=== PATIENT | male | born 1955 | race African-American/Black ===

== ENCOUNTER 2018-08-22 17:23 | Inpatient (IN) | payer MEDICARE, MEDICAID ==
--- NOTE | 2018-08-22 17:47 | ED Physician Chart ---
ED Chief Complaint/HPI - Patient Information Date Seen:: 08/22/18 Time Seen:: 17:30 Chief Complaint:: Agitation History of Present Illness:: onset x 2 days of agitation and hostile behavior; no report of trauma, H/As, SIs , neck pain, C/P, SOB, Abd. Pain, or urinary s/s Allergies:: Allergies Allergy/AdvReac Type Severity Reaction Status Date / Time No Known Allergies Allergy Verified 08/22/18 17:42 Historian:: Patient, EMS Review:: Nurse's Note Reviewed, Old Chart Reviewed <Emerson Verduzco - Last Filed: 08/22/18 18:52> - Patient Information Allergies:: Allergies Allergy/AdvReac Type Severity Reaction Status Date / Time No Known Allergies Allergy Verified 08/22/18 17:42 <Kimber Roa - Last Filed: 08/23/18 11:59> ED Review of Systems - Review of Systems General/Constitutional: No fever, No chills, No weight loss, No weakness, No diaphoresis, No edema, No loss of appetite Skin: No skin lesions, No rash, No bruising Head: No headache, No light-headedness Eyes: No loss of vision, No pain, No diplopia ENT: No earache, No nasal drainage, No sore throat, No tinnitus Neck: No neck pain, No swelling, No thyromegaly, No stiffness, No mass noted Cardio Vascular: No chest pain, No palpitations, No PND, No orthopnea, No edema Pulmonary: No SOB, No cough, No sputum, No wheezing GI: No nausea, No vomiting, No diarrhea, No pain, No melena, No hematochezia, No constipation, No hematemesis G/U: No dysuria, No frequency, No hematuria, No nacturia Musculoskeletal: No bone or joint pain, No back pain, No muscle pain Endocrine: No polyuria, No polydipsia Psychiatric: Prior psych history, Depression, Anxiety, No suicidal ideation, No homicidal ideation, No auditory hallucination, No visual hallucination Hematopoietic: No bruising, No lymphadenopathy Allergic/Immuno: No urticaria, No angioedema Neurological: No syncope, No focal symptoms, No weakness, No paresthesia, No headache, No seizure, No dizziness, No confusion, No vertigo <Emerson Verduzco - Last Filed: 08/22/18 18:52> ED Past Medical History - Past Medical History Obtainable: Yes Past Medical History: HTN, DM, Dyslipidemia Family History: HTN Social History: Non Smoker, No Alcohol, No Drug Use, Single, Care Facility Surgical History: None Psychiatricy History: Depression, Bipolar Medication: Reviewed <ErinmilessulyEmerson - Last Filed: 08/22/18 18:52> Family Medical History - Family Member Mother History Unknown: Yes <ErinmilessulyEmerson - Last Filed: 08/22/18 18:52> ED Physical Exam - Physical Examination General/Constitutional: Awake, Well-developed, well-nourished, Alert, No distress, GCS 15, Non-toxic appearing, Ambulatory Head: Atraumatic Eyes: Lids, conjuctiva normal, PERRL, EOMI Skin: Nl inspection, No rash, No skin lesions, No ecchymosis, Well hydrated, No lymphadenopathy ENMT: External ears, nose nl, TM canals nl, Nasal exam nl, Lips, teeth, gums nl , Oropharynx nl, Tonsils nl Neck: Nontender, Full ROM w/o pain, No JVD, No nuchal rigidity, No bruit, No mass, No stridor Respiratory: Nl effort/Exclusion, Clear to Auscultation, No Wheeze/Rhonchi/Rales Cardio Vascular: RRR, No murmur, gallop, rubs, NL S1 S2, Carotid/Femoral/Distal pulses equal bilaterally GI: No tenderness/rebounding/guarding, No organomegaly, No hernia, Normal BS's, Nondistended, No mass/bruits, No McBurney tenderness Other GI comments:: no pulsatile masses : No CVA tenderness Extremities: No tenderness or effusion, Full ROM, normal strength in all extremities, No edema, Normal digits & nails Neuro/Psych: Alert/oriented, DTR's symmetric, Normal sensory exam, Normal motor strength, Judgement/insight normal, Mood normal, Normal gait, No focal deficits Other Neuro/Psych comments:: + Psychomotor Agitation; no SIs; Mood/Affect: Labile Misc: Normal back, No paraspinal tenderness <SindysulyEmerson - Last Filed: 08/22/18 18:52> ED Labs/Radiology/EKG Results - Lab Results Results: Laboratory Tests 08/22/18 08/22/18 08/22/18 17:30 18:00 18:00 WBC 5.3 RBC 4.24 L Hgb 11.9 L Hct 36.9 L MCV 87.0 MCH 28.1 MCHC Differential 32.2 RDW 13.5 Plt Count 159 MPV 8.6 Neutrophils % 51.3 Lymphocytes % 36.7 Monocytes % 9.3 Eosinophils % 2.1 Basophils % 0.6 Sodium 133 L Potassium 3.9 Chloride 98 Carbon Dioxide 26.1 Anion Gap 12.8 BUN 24 Creatinine 1.7 H Est GFR ( Amer) 52.6 Est GFR (Non-Af Amer) 43.5 BUN/Creatinine Ratio 14.1 Glucose 329 H POC Glucose Calcium 9.7 Total Bilirubin 0.4 AST 31 ALT 71 H Alkaline Phosphatase 149 H Troponin I Total Protein 7.4 Albumin 4.0 L Globulin 3.4 Albumin/Globulin Ratio 1.2 Triglycerides 261 H Cholesterol 138 LDL Cholesterol Direct 104 HDL Cholesterol 23 TSH Urine Source Urine Color Urine Clarity Urine pH Ur Specific [place] Urine Protein Urine Glucose (UA) Urine Ketones Urine Blood Urine Nitrate Urine Bilirubin Urine Urobilinogen Ur Leukocyte Esterase Urine RBC Urine WBC Ur Epithelial Cells Urine Bacteria Salicylates < 25.0 L Urine Opiates Screen NEGATIVE Urine Methadone Screen NEGATIVE Acetaminophen < 10.0 L Ur Barbiturates Screen NEGATIVE Ur Tricyclics Screen POSITIVE H Ur Phencyclidine Scrn NEGATIVE Amphetamines Screen NEGATIVE U Methamphetamines Scrn NEGATIVE U Benzodiazepines Scrn NEGATIVE U Cocaine Metab Screen NEGATIVE U Cannabinoids Screen NEGATIVE Ethyl Alcohol < 10 08/22/18 08/22/18 08/22/18 18:00 18:00 18:25 WBC RBC Hgb Hct MCV MCH MCHC Differential RDW Plt Count MPV Neutrophils % Lymphocytes % Monocytes % Eosinophils % Basophils % Sodium Potassium Chloride Carbon Dioxide Anion Gap BUN Creatinine Est GFR ( Amer) Est GFR (Non-Af Amer) BUN/Creatinine Ratio Glucose POC Glucose Calcium Total Bilirubin AST ALT Alkaline Phosphatase Troponin I < 0.01 L Total Protein Albumin Globulin Albumin/Globulin Ratio Triglycerides Cholesterol LDL Cholesterol Direct HDL Cholesterol TSH 5.39 Urine Source CLEAN C Urine Color YELLOW Urine Clarity CLEAR Urine pH 6.0 Ur Specific [place] 1.010 Urine Protein NEGATIVE Urine Glucose (UA) >=1000 H Urine Ketones NEGATIVE Urine Blood NEGATIVE Urine Nitrate NEGATIVE Urine Bilirubin NEGATIVE Urine Urobilinogen 0.2 Ur Leukocyte Esterase NEGATIVE Urine RBC 0-2 H Urine WBC 2-5 Ur Epithelial Cells OCCASIONAL Urine Bacteria FEW Salicylates Urine Opiates Screen Urine Methadone Screen Acetaminophen Ur Barbiturates Screen Ur Tricyclics Screen Ur Phencyclidine Scrn Amphetamines Screen U Methamphetamines Scrn U Benzodiazepines Scrn U Cocaine Metab Screen U Cannabinoids Screen Ethyl Alcohol 08/22/18 20:45 WBC RBC Hgb Hct MCV MCH MCHC Differential RDW Plt Count MPV Neutrophils % Lymphocytes % Monocytes % Eosinophils % Basophils % Sodium Potassium Chloride Carbon Dioxide Anion Gap BUN Creatinine Est GFR ( Amer) Est GFR (Non-Af Amer) BUN/Creatinine Ratio Glucose POC Glucose 239 H Calcium Total Bilirubin AST ALT Alkaline Phosphatase Troponin I Total Protein Albumin Globulin Albumin/Globulin Ratio Triglycerides Cholesterol LDL Cholesterol Direct HDL Cholesterol TSH Urine Source Urine Color Urine Clarity Urine pH Ur Specific [place] Urine Protein Urine Glucose (UA) Urine Ketones Urine Blood Urine Nitrate Urine Bilirubin Urine Urobilinogen Ur Leukocyte Esterase Urine RBC Urine WBC Ur Epithelial Cells Urine Bacteria Salicylates Urine Opiates Screen Urine Methadone Screen Acetaminophen Ur Barbiturates Screen Ur Tricyclics Screen Ur Phencyclidine Scrn Amphetamines Screen U Methamphetamines Scrn U Benzodiazepines Scrn U Cocaine Metab Screen U Cannabinoids Screen Ethyl Alcohol <Kimber Roa - Last Filed: 08/23/18 11:59> ED Septic Shock - . Is Septic Shock (SBP<90, OR Lactate>4 mmol\L) present?: No <Emerson Verduzco - Last Filed: 08/22/18 18:52> ED Reassessment (Disposition) - Reassessment Reassessment Condition:: Improved - Diagnosis Diagnosis:: Agitation; Medical Clearance; DM; Hyperlipidemia <Emerson Verdzuco - Last Filed: 08/22/18 18:52> - Reassessment Reassessment:: Cleared for admission to geropsych unit for further evaluation and management. - Patient Disposition Discharge/Transfer:: [facility] w/in this hosp Admitting Medical Physician:: Sheldon Dunbar Admitting Psych Physician:: Gerardo Jordan <Kimber Roa - Last Filed: 08/23/18 11:59>
[2018-08-22 18:26] LABS: % BASOPHILS 0.6 % (0.0-2.0); % EOSINOPHILS 2.1 % (0.0-5.0); % LYMPHOCYTES 36.7 % (20.0-50.0); % MONOCYTES 9.3 % (2.0-10.0); % NEUTROPHILS 51.3 % (40.0-80.0); EOSINOPHILE ABSOLUTE 0.1 Th/cmm (0.1-0.4); HEMATOCRIT 36.9 % (41.0-60); HEMOGLOBIN 11.9 gm/dL (12-16); LYMPHOCYTE ABSOLUTE 1.9 Th/cmm (1.5-3.0); MEAN CORPUSCULAR HEMOGLOBIN 28.1 pg (26.0-30.0); MEAN CORPUSCULAR HGB CONC 32.2 pg (28.0-36.0); MEAN PLATELET VOLUME 8.6 fl; MONOCYTE ABSOLUTE 0.5 Th/cmm (0.3-1.0); NEUTROPHILE ABSOLUTE 2.8 Th/cmm (1.8-8.0); PLATELET COUNT 159 Th/cmm (150-400); RED BLOOD COUNT 4.24 Mil/cmm (4.30-5.70); RED CELL DISTRIBUTION WIDTH 13.5 % (11.5-20.0); WHITE BLOOD COUNT 5.3 Th/cmm (4.8-10.8)
[2018-08-22 18:43] LABS: URINE SOURCE CLEAN C
[2018-08-22 18:44] LABS: URINE BILIRUBIN NEGATIVE (NEGATIVE); URINE BLOOD NEGATIVE (NEGATIVE); URINE GLUCOSE (UA) >=1000 mg/dL (NEGATIVE); URINE KETONE NEGATIVE (NEGATIVE); URINE LEUKOCYTE ESTERASE NEGATIVE (NEGATIVE); URINE MICROSCOPIC INDICATED? YES; URINE NITRATE NEGATIVE (NEGATIVE); URINE PROTEIN NEGATIVE (NEGATIVE); URINE UROBILINOGEN 0.2 E.U./dL (0.2 - 1.0)
[2018-08-22 18:46] LABS: URINE CLARITY CLEAR (CLEAR); URINE COLOR YELLOW
[2018-08-22 18:47] LABS: ACETAMINOPHEN < 10.0 ug/mL (10.0-30.0); ALB/GLOB RATIO 1.2 (1.0-1.8); ALKALINE PHOSPHATASE 149 U/L (34-104); ANION GAP 12.8 (7.0-16.0); BILIRUBIN,TOTAL 0.4 mg/dL (0.3-1.0); BUN - UREA NITROGEN 24 mg/dL (7-25); CALCIUM SERUM 9.7 mg/dL (8.6-10.3); CARBON DIOXIDE 26.1 mEq/L (21.0-31.0); CHLORIDE 98 mEq/L (98-107); CHOLESTEROL 138 mg/dL (<200); CREATININE - SERUM 1.7 mg/dL (0.7-1.3); GFR AFRICAN-AMERICAN 52.6 ml/min (>90); GFR NON AFRICAN-AMERICAN 43.5 ml/min; GLUCOSE 329 mg/dL (70-105); HDL -HIGH DENSITY LIPOPROTEIN 23 mg/dL (23-92); POTASSIUM SERUM 3.9 mEq/L (3.5-5.1); SGOT 31 U/L (13-39); SGPT/ALT 71 U/L (7-52); SODIUM SERUM 133 mEq/L (136-145); TOTAL PROTEIN,SERUM 7.4 gm/dL (6.0-8.3); TRIGLYCERIDES 261 mg/dL (<150)
[2018-08-22 18:48] LABS: URINE BACTERIA FEW /hpf (NONE SEEN); URINE EPITHELIAL CELLS OCCASIONAL /lpf (FEW); URINE RBC 0-2 /hpf (0-5)
[2018-08-22 18:49] LABS: SALICYLATES (ASPIRIN) < 25.0 mg/L (30.0-100.0)
[2018-08-22] MEDS ORDERED: INSULIN HUMAN REGULAR 100 UNITS/ML UNIT SUBQ ONE (18:52)
[2018-08-22] MEDS ORDERED: Sodium Chloride 0.9% 1,000 ML IV ONE (19:21)
[2018-08-22] MEDS ORDERED: INSULIN HUMAN REGULAR 100 UNITS/ML UNIT ONE (19:41)
[2018-08-22 20:39] LABS: AMPHETAMINE URINE NEGATIVE (NEGATIVE); BARBITURATES URINE NEGATIVE (NEGATIVE); BENZODIAZEPINES QUAL URINE NEGATIVE (NEGATIVE); CANNABINOID THC NEGATIVE (NEGATIVE); COCAINE METABOLITE QUAL URINE NEGATIVE (NEGATIVE); METHADONE URINE NEGATIVE (NEGATIVE); METHAMPHETAMINES QUAL URINE NEGATIVE (NEGATIVE); OPIATES (MORPHINE) QUAL. URINE NEGATIVE (NEGATIVE); PHENCYCLIDINE (PCP) URINE NEGATIVE (NEGATIVE); TRICYCLICS (TCA) QUAL. URINE POSITIVE (NEGATIVE)
[2018-08-22 22:59] VITALS: BP 148/75
[2018-08-22] MEDS ORDERED: Magnesium Hydroxide (MOM) 30 mL UDC PO PRN (23:16)
[2018-08-22] MEDS ORDERED: Maalox 30 mL Cup PO PRN (23:16)
[2018-08-23 06:23] LABS: CHOLESTEROL 151 mg/dL (<200); HDL -HIGH DENSITY LIPOPROTEIN 24 mg/dL (23-92); TRIGLYCERIDES 121 mg/dL (<150)
[2018-08-23] MEDS ORDERED: Lactulose 10 Gm/15 mL 30mL UDC PO PRN (10:34)
[2018-08-23] MEDS ORDERED: Hydrocodone/APAP 5mg/325mg Tab PO PRN (10:58)
[2018-08-23] MEDS ORDERED: Dextrose 50% 50 mL Abboject IVP PRN (11:32)
[2018-08-23] MEDS ORDERED: GLUCAGON HCl 1 MG KIT IM PRN (11:32)
[2018-08-23] MEDS ORDERED: Lactobacillus Rhamnosus GG 15 Billion CFU CAP.SPRINK PO SCH (13:00)
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
[2018-08-23] MEDS ORDERED: METOPROLOL TARTRATE 100 MG PO SCH (17:00)
[2018-08-23] MEDS: Lactulose 10 Gm/15 mL 30mL UDC PO SCH (17:03)
[2018-08-23] MEDS: INSULIN LISPRO SLIDING SCALE 100 UNITS/ML UNIT SUBQ SCH ×2 (17:04→20:30)
[2018-08-23] MEDS: Insulin Glargine 100 units/ml 10ml Vial SUBQ SCH (17:15)
[2018-08-24] MEDS: INSULIN LISPRO SLIDING SCALE 100 UNITS/ML UNIT SUBQ SCH ×4 (06:48→21:01)
[2018-08-24] MEDS ORDERED: Multivitamin w/ Minerals Tab PO SCH (09:00)
[2018-08-24] MEDS: Lactulose 10 Gm/15 mL 30mL UDC PO SCH ×2 (09:09→16:56)
[2018-08-24] MEDS: Lactobacillus Rhamnosus GG 15 Billion CFU CAP.SPRINK PO SCH ×2 (09:10→16:56)
[2018-08-24] MEDS: Multivitamin w/ Minerals Tab PO SCH (09:10)
[2018-08-24] MEDS: Insulin Glargine 100 units/ml 10ml Vial SUBQ SCH ×2 (09:30→17:05)
--- NOTE | 2018-08-24 12:10 | Internal Medicine Prog Note ---
Internal Medicine Subjective - Subjective Patient seen and examined:: with staff, chart reviewed Patient is:: awake, verbal, interactive, in wheelchair Per staff patient has:: no adverse event, no episodes of fall, eating well, tolerating meds Internal Medicine Objective - Results Result Diagrams: 08/22/18 18:00 08/22/18 18:00 Recent Labs: Laboratory Last Values WBC 5.3 Th/cmm (4.8-10.8) 08/22/18 18:00 RBC 4.24 Mil/cmm (4.30-5.70) L 08/22/18 18:00 Hgb 11.9 gm/dL (12-16) L 08/22/18 18:00 Hct 36.9 % (41.0-60) L 08/22/18 18:00 MCV 87.0 fl (80-99) 08/22/18 18:00 MCH 28.1 pg (26.0-30.0) 08/22/18 18:00 MCHC Differential 32.2 pg (28.0-36.0) 08/22/18 18:00 RDW 13.5 % (11.5-20.0) 08/22/18 18:00 Plt Count 159 Th/cmm (150-400) 08/22/18 18:00 MPV 8.6 fl 08/22/18 18:00 Neutrophils % 51.3 % (40.0-80.0) 08/22/18 18:00 Lymphocytes % 36.7 % (20.0-50.0) 08/22/18 18:00 Monocytes % 9.3 % (2.0-10.0) 08/22/18 18:00 Eosinophils % 2.1 % (0.0-5.0) 08/22/18 18:00 Basophils % 0.6 % (0.0-2.0) 08/22/18 18:00 Sodium 133 mEq/L (136-145) L 08/22/18 18:00 Potassium 3.9 mEq/L (3.5-5.1) 08/22/18 18:00 Chloride 98 mEq/L (98-107) 08/22/18 18:00 Carbon Dioxide 26.1 mEq/L (21.0-31.0) 08/22/18 18:00 Anion Gap 12.8 (7.0-16.0) 08/22/18 18:00 BUN 24 mg/dL (7-25) 08/22/18 18:00 Creatinine 1.7 mg/dL (0.7-1.3) H 08/22/18 18:00 Est GFR ( Amer) 52.6 ml/min (>90) 08/22/18 18:00 Est GFR (Non-Af Amer) 43.5 ml/min 08/22/18 18:00 BUN/Creatinine Ratio 14.1 08/22/18 18:00 Glucose 329 mg/dL (70-105) H 08/22/18 18:00 POC Glucose 255 MG/DL (70 - 105) H 08/23/18 16:07 Calcium 9.7 mg/dL (8.6-10.3) 08/22/18 18:00 Total Bilirubin 0.4 mg/dL (0.3-1.0) 08/22/18 18:00 AST 31 U/L (13-39) 08/22/18 18:00 ALT 71 U/L (7-52) H 08/22/18 18:00 Alkaline Phosphatase 149 U/L (34-104) H 08/22/18 18:00 Troponin I < 0.01 ng/mL (0.01-0.05) L 08/22/18 18:00 Total Protein 7.4 gm/dL (6.0-8.3) 08/22/18 18:00 Albumin 4.0 gm/dL (4.2-5.5) L 08/22/18 18:00 Globulin 3.4 gm/dL 08/22/18 18:00 Albumin/Globulin Ratio 1.2 (1.0-1.8) 08/22/18 18:00 Triglycerides 121 mg/dL (<150) 08/23/18 06:00 Cholesterol 151 mg/dL (<200) 08/23/18 06:00 LDL Cholesterol Direct 109 mg/dL (75-193) 08/23/18 06:00 HDL Cholesterol 24 mg/dL (23-92) 08/23/18 06:00 TSH 5.39 uIU/ml (0.34-5.60) 08/22/18 18:00 Urine Source CLEAN C 08/22/18 18:25 Urine Color YELLOW 08/22/18 18:25 Urine Clarity CLEAR (CLEAR) 08/22/18 18:25 Urine pH 6.0 (4.6 - 8.0) 08/22/18 18:25 Ur Specific [place] 1.010 (1.005-1.030) 08/22/18 18:25 Urine Protein NEGATIVE mg/dL (NEGATIVE) 08/22/18 18:25 Urine Glucose (UA) >=1000 mg/dL (NEGATIVE) H 08/22/18 18:25 Urine Ketones NEGATIVE mg/dL (NEGATIVE) 08/22/18 18:25 Urine Blood NEGATIVE (NEGATIVE) 08/22/18 18:25 Urine Nitrate NEGATIVE (NEGATIVE) 08/22/18 18:25 Urine Bilirubin NEGATIVE (NEGATIVE) 08/22/18 18:25 Urine Urobilinogen 0.2 E.U./dL (0.2 - 1.0) 08/22/18 18:25 Ur Leukocyte Esterase NEGATIVE (NEGATIVE) 08/22/18 18:25 Urine RBC 0-2 /hpf (0-5) H 08/22/18 18:25 Urine WBC 2-5 /hpf (0-5) 08/22/18 18:25 Ur Epithelial Cells OCCASIONAL /lpf (FEW) 08/22/18 18:25 Urine Bacteria FEW /hpf (NONE SEEN) 08/22/18 18:25 Salicylates < 25.0 mg/L (30.0-100.0) L 08/22/18 18:00 Urine Opiates Screen NEGATIVE (NEGATIVE) 08/22/18 17:30 Urine Methadone Screen NEGATIVE (NEGATIVE) 08/22/18 17:30 Acetaminophen < 10.0 ug/mL (10.0-30.0) L 08/22/18 18:00 Ur Barbiturates Screen NEGATIVE (NEGATIVE) 08/22/18 17:30 Ur Tricyclics Screen POSITIVE (NEGATIVE) H 08/22/18 17:30 Ur Phencyclidine Scrn NEGATIVE (NEGATIVE) 08/22/18 17:30 Amphetamines Screen NEGATIVE (NEGATIVE) 08/22/18 17:30 U Methamphetamines Scrn NEGATIVE (NEGATIVE) 08/22/18 17:30 U Benzodiazepines Scrn NEGATIVE (NEGATIVE) 08/22/18 17:30 U Cocaine Metab Screen NEGATIVE (NEGATIVE) 08/22/18 17:30 U Cannabinoids Screen NEGATIVE (NEGATIVE) 08/22/18 17:30 Ethyl Alcohol < 10 mg/dL (0-10) 08/22/18 18:00 - Physical Exam Vitals and I&O: Vital Signs Temp 97.8 F 08/24/18 06:41 Pulse 69 08/24/18 09:11 Resp 19 08/24/18 06:41 BP 122/80 08/24/18 09:11 Pulse Ox 98 08/24/18 06:41 Intake & Output 08/23/18 08/24/18 08/24/18 18:59 06:59 18:59 Intake Total 1200 120 Balance 1200 120 Intake: Oral 1200 120 Other: # Voids 3 # Bowel Movements 1 0 Active Medications: Current Medications Acetaminophen/Hydrocodone Bitart ([place] 5mg/325mg) 1 tab PO Q4H PRN PRN Reason: Pain (Moderate) Stop: 10/22/18 10:57 Last Admin: 08/23/18 11:29 Dose: 1 tab Al Hydrox/Mg Hydrox/Simethicone (Maalox) 30 ml PO Q4HR PRN PRN Reason: GI DISTRESS Stop: 10/21/18 23:15 Amlodipine Besylate (Norvasc) 10 mg PO DAILY [facility] Stop: 10/23/18 08:59 Last Admin: 08/24/18 09:11 Dose: 10 mg Ascorbic Acid (Vitamin C) 500 mg PO DAILY [facility] Stop: 10/23/18 08:59 Last Admin: 08/24/18 09:10 Dose: 500 mg Cholecalciferol (Vitamin D3) 1,000 iu PO DAILY [facility] Stop: 10/23/18 08:59 Last Admin: 08/24/18 09:10 Dose: 1,000 iu Citalopram Hydrobromide (Celexa) 20 mg PO DAILY [facility]; Protocol Stop: 10/23/18 08:59 Dextrose (D50w) 50 ml IVP PRN PRN PRN Reason: BS below 70 & not tolerate po Stop: 10/22/18 11:31 Dextrose (Glutose 40%) 18.75 gm PO PRN PRN PRN Reason: BS below 70 & tolerate po Stop: 10/22/18 11:31 Docusate Sodium (Colace) 250 mg PO BID [facility] Stop: 10/22/18 16:59 Last Admin: 08/24/18 09:10 Dose: 250 mg Furosemide (Lasix) 40 mg PO DAILY [facility] Stop: 10/23/18 08:59 Last Admin: 08/24/18 09:10 Dose: 40 mg Gabapentin (Neurontin) 300 mg PO BID [facility] Stop: 10/22/18 16:59 Last Admin: 08/24/18 09:10 Dose: 300 mg Glucagon (Glucagen) 1 mg IM PRN PRN PRN Reason: BS below 70&dextrose ineffecti Stop: 10/22/18 11:31 Insulin Glargine (Lantus Insulin) 75 units SUBQ BID [facility] Stop: 10/22/18 16:59 Last Admin: 08/24/18 09:30 Dose: Not Given Insulin Human Lispro (Humalog Insulin Sliding Scale) 0 units SUBQ ACHS [facility]; Protocol Stop: 10/22/18 16:29 Last Admin: 08/24/18 11:32 Dose: 2 units Lactobacillus Rhamnosus (Culturelle 15b) 1 each PO BID [facility] Stop: 10/23/18 08:59 Last Admin: 08/24/18 09:10 Dose: 1 each Lactulose (Cephulac) 20 gm PO DAILY PRN PRN Reason: Constipation Stop: 10/23/18 08:59 Lactulose (Cephulac) 20 gm PO BID [facility] Stop: 10/22/18 16:59 Last Admin: 08/24/18 09:09 Dose: 20 gm Levetiracetam (Keppra) 500 mg PO BID [facility] Stop: 10/22/18 16:59 Last Admin: 08/24/18 09:10 Dose: 500 mg Lorazepam (Ativan) 0.5 mg PO Q4HR PRN; Protocol PRN Reason: Anxiety Stop: 09/21/18 23:15 Magnesium Hydroxide (Milk Of Magnesia) 30 ml PO HS PRN PRN Reason: Constipation Metoprolol Tartrate (Lopressor) 100 mg PO BID [facility] Stop: 10/22/18 16:59 Last Admin: 08/24/18 09:11 Dose: 100 mg Quetiapine Fumarate (Seroquel) 100 mg PO BID [facility]; Protocol Stop: 10/23/18 08:59 Last Admin: 08/24/18 09:10 Dose: 100 mg Simvastatin (Zocor) 10 mg PO HS [facility]; Protocol Stop: 10/22/18 20:59 Last Admin: 08/23/18 20:30 Dose: 10 mg Zolpidem Tartrate (Ambien) 5 mg PO HS PRN PRN Reason: Insomnia Stop: 10/21/18 23:15 General: alert HEENT: NC/AT, PERRLA, EOMI Neck: Supple, No JVD Lungs: CTAB Cardiovascular: RRR, Normal S1, Normal S2, without murmur Abdomen: soft, globular, positive bowel sound Extremities: excoriation Neurological: no change Internal Medicine Assmt/Plan - Assessment Assessment: ASSESSMENT AND PLAN: 1. History of stroke, seizure. 2. Hypertension. 3. Hypercholesterolemia. 4. Psych disorder. 5. Diabetes. 6. Anemia. 7. Hyponatremia. 8. Renal insufficiency. - Plan Plan: PLAN: Continue the patient on insulin sliding scale. Adjust the patient's antihypertensive medication. Adjust the patient's __dm__ medication including insulin. We will monitor the patient closely. Psychiatry to manage the patient for psych issues.
--- NOTE | 2018-08-25 03:39 | Psychiatric Evaluation ---
DATE OF SERVICE: 08/24/2018 REASON FOR ADMISSION: The patient was admitted for increased confusion, depression, and agitation. HISTORY OF PRESENT ILLNESS: The patient is an -[place] male from [facility]. The patient was sent here for increased depression, confusion and agitation. The patient appeared to be a poor historian. The patient was able to give his first and last name. The patient stated that he is 63, when he is actually 62. The patient was able to give his date of . The patient was not able to say where he was prior to coming here. The patient stated that he was living in a board and care in [place]. The patient was not able to say why he is here and how long he has been here. The patient reported that he has 7 kids. When asked where is his , the patient has no answer. The patient was not able to say whether he is still , or . The patient was not able to say what was the last time he saw his . The patient reported that he has been eating and sleeping okay. When asked how long he has been having problem with his memory, the patient was not able to give the answer. The patient was usually slow in his response. The patient admitted that he is depressed. The patient stated that he does not want to be here. He does not know why he is here. When asked what would make him happy, the patient stated that for him to return to his board and care in [place]. PAST PSYCHIATRIC HISTORY: The patient was not able to give any past psychiatric history. The patient denied any prior psychiatric hospitalization. The patient was not able to say if he had seen any psychiatrist or taking any psychotropic medication. MEDICAL HISTORY: The patient has history of cerebrovascular accident with right-sided weakness, seizure disorder, hypertension, neuralgia, neuritis, and hyperlipidemia. SURGICAL HISTORY: The patient reported that he had a surgery, but not able to remember the name. The patient pointed to the right side of his body and said that he had operation over there. FAMILY HISTORY: The patient reported that he is the oldest of 7 children. He has 3 brothers and 3 sisters. ALLERGIES: The patient has no known allergies. MEDICATIONS: Currently, the patient is on Tylenol, simethicone, Norvasc, vitamin C, vitamin D, Celexa 20 mg daily, Colace, Lasix, Neurontin, glucagon, Lantus insulin, Humalog insulin sliding scale, lactobacillus, lactulose, Keppra, Ativan 0.5 mg q.4 hours p.r.n., milk of magnesia, Lopressor, Seroquel 100 mg b.i.d., Zocor, and Ambien 5 mg at bedtime p.r.n. 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 MENTAL STATUS EXAMINATION: The patient appeared appropriate for stated age. The patient appeared confused. The patient was not able to say how long he has been here; however, the patient was able to say that he is in [place] and today's date is 08/25/2016. The patient was able to give the name of the current president. Immediate memory, the patient was able to repeat the 4 items after they were given to him the first time. However, the patient was unable to recall any of the 4 items after a few minutes. The patient was able to recall them when given hints. The patient was unable to give interpretation to two of 3 the proverbs. The third proverb, the patient gave concrete interpretation. The patient denied any auditory or visual hallucination or delusion. Concentration, the patient had difficulty performing serial three subtraction. The patient was able to give the first answer 20-3 equals 17, but not able to give the next answer. The patient attempted serial 7 subtraction and was able to give the first answer of 93, but not able to give the next answer. Mood, the patient admitted to feeling depressed. The patient rated his mood as 5 on a 0-10 scale, 0 being normal and happy and 10 being very depressed and suicidal. DIAGNOSTIC IMPRESSION: AXIS I: 1. Vascular dementia with depression and behavioral disturbance. 2. 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 3. Impulse control disorder, not otherwise specified. 4. Personality change due to medical condition. AXIS II: Deferred. AXIS III: The patient has history of cerebrovascular accident with right-sided weakness, seizure disorder, hypertension, neuralgia, neuritis, and hyperlipidemia. AXIS IV. Medical and mental illnesses. AXIS V: Current 20, past year unknown. PLAN: We will continue patient on current medications and monitor for his depressive symptoms and any possible psychotic symptoms and behavioral disturbances. Consider using mood stabilizer, Trileptal if the patient has episodes of agitation. ESTIMATED LENGTH OF STAY: 7-10 days. DISCHARGE CRITERIA: Include improvement of his condition with no recurrent aggressive behavior and improvement of his mood with continued compliant with care and treatment. [facility]# [id number]
[2018-08-25] MEDS: INSULIN LISPRO SLIDING SCALE 100 UNITS/ML UNIT SUBQ SCH ×4 (06:34→21:00)
[2018-08-25] MEDS: Multivitamin w/ Minerals Tab PO SCH (08:26)
[2018-08-25] MEDS: Lactobacillus Rhamnosus GG 15 Billion CFU CAP.SPRINK PO SCH ×2 (08:26→17:10)
[2018-08-25] MEDS: Lactulose 10 Gm/15 mL 30mL UDC PO SCH ×2 (08:27→17:10)
[2018-08-25] MEDS: Insulin Glargine 100 units/ml 10ml Vial SUBQ SCH ×2 (08:28→16:52)
--- NOTE | 2018-08-25 12:06 | Internal Medicine Prog Note ---
Internal Medicine Subjective - Subjective Patient seen and examined:: with staff, chart reviewed Patient is:: awake, verbal, interactive, in wheelchair Per staff patient has:: no adverse event, no episodes of fall, eating well, tolerating meds Internal Medicine Objective - Results Result Diagrams: 08/22/18 18:00 08/22/18 18:00 Recent Labs: Laboratory Last Values WBC 5.3 Th/cmm (4.8-10.8) 08/22/18 18:00 RBC 4.24 Mil/cmm (4.30-5.70) L 08/22/18 18:00 Hgb 11.9 gm/dL (12-16) L 08/22/18 18:00 Hct 36.9 % (41.0-60) L 08/22/18 18:00 MCV 87.0 fl (80-99) 08/22/18 18:00 MCH 28.1 pg (26.0-30.0) 08/22/18 18:00 MCHC Differential 32.2 pg (28.0-36.0) 08/22/18 18:00 RDW 13.5 % (11.5-20.0) 08/22/18 18:00 Plt Count 159 Th/cmm (150-400) 08/22/18 18:00 MPV 8.6 fl 08/22/18 18:00 Neutrophils % 51.3 % (40.0-80.0) 08/22/18 18:00 Lymphocytes % 36.7 % (20.0-50.0) 08/22/18 18:00 Monocytes % 9.3 % (2.0-10.0) 08/22/18 18:00 Eosinophils % 2.1 % (0.0-5.0) 08/22/18 18:00 Basophils % 0.6 % (0.0-2.0) 08/22/18 18:00 Sodium 133 mEq/L (136-145) L 08/22/18 18:00 Potassium 3.9 mEq/L (3.5-5.1) 08/22/18 18:00 Chloride 98 mEq/L (98-107) 08/22/18 18:00 Carbon Dioxide 26.1 mEq/L (21.0-31.0) 08/22/18 18:00 Anion Gap 12.8 (7.0-16.0) 08/22/18 18:00 BUN 24 mg/dL (7-25) 08/22/18 18:00 Creatinine 1.7 mg/dL (0.7-1.3) H 08/22/18 18:00 Est GFR ( Amer) 52.6 ml/min (>90) 08/22/18 18:00 Est GFR (Non-Af Amer) 43.5 ml/min 08/22/18 18:00 BUN/Creatinine Ratio 14.1 08/22/18 18:00 Glucose 445 mg/dL (70-105) H 08/24/18 16:57 POC Glucose 255 MG/DL (70 - 105) H 08/23/18 16:07 Calcium 9.7 mg/dL (8.6-10.3) 08/22/18 18:00 Total Bilirubin 0.4 mg/dL (0.3-1.0) 08/22/18 18:00 AST 31 U/L (13-39) 08/22/18 18:00 ALT 71 U/L (7-52) H 08/22/18 18:00 Alkaline Phosphatase 149 U/L (34-104) H 08/22/18 18:00 Troponin I < 0.01 ng/mL (0.01-0.05) L 08/22/18 18:00 Total Protein 7.4 gm/dL (6.0-8.3) 08/22/18 18:00 Albumin 4.0 gm/dL (4.2-5.5) L 08/22/18 18:00 Globulin 3.4 gm/dL 08/22/18 18:00 Albumin/Globulin Ratio 1.2 (1.0-1.8) 08/22/18 18:00 Triglycerides 121 mg/dL (<150) 08/23/18 06:00 Cholesterol 151 mg/dL (<200) 08/23/18 06:00 LDL Cholesterol Direct 109 mg/dL (75-193) 08/23/18 06:00 HDL Cholesterol 24 mg/dL (23-92) 08/23/18 06:00 TSH 5.39 uIU/ml (0.34-5.60) 08/22/18 18:00 Urine Source CLEAN C 08/22/18 18:25 Urine Color YELLOW 08/22/18 18:25 Urine Clarity CLEAR (CLEAR) 08/22/18 18:25 Urine pH 6.0 (4.6 - 8.0) 08/22/18 18:25 Ur Specific [place] 1.010 (1.005-1.030) 08/22/18 18:25 Urine Protein NEGATIVE mg/dL (NEGATIVE) 08/22/18 18:25 Urine Glucose (UA) >=1000 mg/dL (NEGATIVE) H 08/22/18 18:25 Urine Ketones NEGATIVE mg/dL (NEGATIVE) 08/22/18 18:25 Urine Blood NEGATIVE (NEGATIVE) 08/22/18 18:25 Urine Nitrate NEGATIVE (NEGATIVE) 08/22/18 18:25 Urine Bilirubin NEGATIVE (NEGATIVE) 08/22/18 18:25 Urine Urobilinogen 0.2 E.U./dL (0.2 - 1.0) 08/22/18 18:25 Ur Leukocyte Esterase NEGATIVE (NEGATIVE) 08/22/18 18:25 Urine RBC 0-2 /hpf (0-5) H 08/22/18 18:25 Urine WBC 2-5 /hpf (0-5) 08/22/18 18:25 Ur Epithelial Cells OCCASIONAL /lpf (FEW) 08/22/18 18:25 Urine Bacteria FEW /hpf (NONE SEEN) 08/22/18 18:25 Salicylates < 25.0 mg/L (30.0-100.0) L 08/22/18 18:00 Urine Opiates Screen NEGATIVE (NEGATIVE) 08/22/18 17:30 Urine Methadone Screen NEGATIVE (NEGATIVE) 08/22/18 17:30 Acetaminophen < 10.0 ug/mL (10.0-30.0) L 08/22/18 18:00 Ur Barbiturates Screen NEGATIVE (NEGATIVE) 08/22/18 17:30 Ur Tricyclics Screen POSITIVE (NEGATIVE) H 08/22/18 17:30 Ur Phencyclidine Scrn NEGATIVE (NEGATIVE) 08/22/18 17:30 Amphetamines Screen NEGATIVE (NEGATIVE) 08/22/18 17:30 U Methamphetamines Scrn NEGATIVE (NEGATIVE) 08/22/18 17:30 U Benzodiazepines Scrn NEGATIVE (NEGATIVE) 08/22/18 17:30 U Cocaine Metab Screen NEGATIVE (NEGATIVE) 08/22/18 17:30 U Cannabinoids Screen NEGATIVE (NEGATIVE) 08/22/18 17:30 Ethyl Alcohol < 10 mg/dL (0-10) 08/22/18 18:00 RPR NONREACTIVE (NONREACTIVE) 08/22/18 18:00 - Physical Exam Vitals and I&O: Vital Signs Temp 96.2 F 08/25/18 06:05 Pulse 88 08/25/18 08:27 Resp 20 08/25/18 06:05 BP 126/83 08/25/18 08:27 Pulse Ox 97 08/25/18 06:05 Intake & Output 08/24/18 08/25/18 08/25/18 18:59 06:59 18:59 Intake Total 1600 120 Balance 1600 120 Intake: Oral 1600 120 Other: # Voids 3 3 # Bowel Movements 0 0 Active Medications: Current Medications Acetaminophen/Hydrocodone Bitart ([place] 5mg/325mg) 1 tab PO Q4H PRN PRN Reason: Pain (Moderate) Stop: 10/22/18 10:57 Last Admin: 08/23/18 11:29 Dose: 1 tab Al Hydrox/Mg Hydrox/Simethicone (Maalox) 30 ml PO Q4HR PRN PRN Reason: GI DISTRESS Stop: 10/21/18 23:15 Amlodipine Besylate (Norvasc) 10 mg PO DAILY [facility] Stop: 10/23/18 08:59 Last Admin: 08/25/18 08:27 Dose: 10 mg Ascorbic Acid (Vitamin C) 500 mg PO DAILY [facility] Stop: 10/23/18 08:59 Last Admin: 08/25/18 08:26 Dose: 500 mg Cholecalciferol (Vitamin D3) 1,000 iu PO DAILY [facility] Stop: 10/23/18 08:59 Last Admin: 08/25/18 08:26 Dose: 1,000 iu Citalopram Hydrobromide (Celexa) 20 mg PO DAILY [facility]; Protocol Stop: 10/23/18 08:59 Last Admin: 08/25/18 08:27 Dose: 20 mg Dextrose (D50w) 50 ml IVP PRN PRN PRN Reason: BS below 70 & not tolerate po Stop: 10/22/18 11:31 Dextrose (Glutose 40%) 18.75 gm PO PRN PRN PRN Reason: BS below 70 & tolerate po Stop: 10/22/18 11:31 Docusate Sodium (Colace) 250 mg PO BID [facility] Stop: 10/22/18 16:59 Last Admin: 08/25/18 08:27 Dose: 250 mg Furosemide (Lasix) 40 mg PO DAILY [facility] Stop: 10/23/18 08:59 Last Admin: 08/25/18 08:26 Dose: 40 mg Gabapentin (Neurontin) 300 mg PO BID [facility] Stop: 10/22/18 16:59 Last Admin: 08/25/18 08:26 Dose: 300 mg Glucagon (Glucagen) 1 mg IM PRN PRN PRN Reason: BS below 70&dextrose ineffecti Stop: 10/22/18 11:31 Insulin Glargine (Lantus Insulin) 75 units SUBQ BID [facility] Stop: 10/22/18 16:59 Last Admin: 08/25/18 08:28 Dose: 75 units Insulin Human Lispro (Humalog Insulin Sliding Scale) 0 units SUBQ ACHS [facility]; Protocol Stop: 10/22/18 16:29 Last Admin: 08/25/18 11:47 Dose: 8 units Lactobacillus Rhamnosus (Culturelle 15b) 1 each PO BID [facility] Stop: 10/23/18 08:59 Last Admin: 08/25/18 08:26 Dose: 1 each Lactulose (Cephulac) 20 gm PO DAILY PRN PRN Reason: Constipation Stop: 10/23/18 08:59 Lactulose (Cephulac) 20 gm PO BID [facility] Stop: 10/22/18 16:59 Last Admin: 08/25/18 08:27 Dose: 20 gm Levetiracetam (Keppra) 500 mg PO BID [facility] Stop: 10/22/18 16:59 Last Admin: 08/25/18 08:27 Dose: 500 mg Lorazepam (Ativan) 0.5 mg PO Q4HR PRN; Protocol PRN Reason: Anxiety Stop: 09/21/18 23:15 Magnesium Hydroxide (Milk Of Magnesia) 30 ml PO HS PRN PRN Reason: Constipation Metoprolol Tartrate (Lopressor) 100 mg PO BID [facility] Stop: 10/22/18 16:59 Last Admin: 08/25/18 08:27 Dose: 100 mg Mupirocin (Bactroban Oint) 1 appl NS BID [facility] Stop: 08/30/18 09:01 Quetiapine Fumarate (Seroquel) 100 mg PO BID [facility]; Protocol Stop: 10/23/18 08:59 Last Admin: 08/25/18 08:26 Dose: 100 mg Simvastatin (Zocor) 10 mg PO HS [facility]; Protocol Stop: 10/22/18 20:59 Last Admin: 08/24/18 21:02 Dose: 10 mg Zolpidem Tartrate (Ambien) 5 mg PO HS PRN PRN Reason: Insomnia Stop: 10/21/18 23:15 General: alert HEENT: NC/AT, PERRLA, EOMI Neck: Supple, No JVD Lungs: CTAB Cardiovascular: RRR, Normal S1, Normal S2, without murmur Abdomen: soft, globular, positive bowel sound Extremities: excoriation Neurological: no change Internal Medicine Assmt/Plan - Assessment Assessment: ASSESSMENT AND PLAN: 1. History of stroke, seizure. 2. Hypertension. 3. Hypercholesterolemia. 4. Psych disorder. 5. Diabetes. 6. Anemia. 7. Hyponatremia. 8. Renal insufficiency. - Plan Plan: PLAN: Continue the patient on insulin sliding scale. on lantus Adjust the patient's antihypertensive medication. Adjust the patient's __dm__ medication including insulin. We will monitor the patient closely. Psychiatry to manage the patient for psych issues.
--- NOTE | 2018-08-26 01:49 | Progress Notes ---
DATE: 08/25/2018 SUBJECTIVE: The patient is sleeping in bed when approached. The patient responded to verbal stimuli. The patient indicated that he had breakfast and his appetite has been okay. The patient also indicated that he slept okay. The patient indicated that he has not been up out of bed at all today. The patient indicated that his brother or sister has not visited. He said that his brother is at work. He was not sure as to when they might be coming by. The patient continued to report that he is depressed. When asked if he still has episodes of feeling angry and upset, the patient nodded. When asked what would cause him to be upset and angry and agitated, the patient was not able to give any answer. The patient indicated that he has been taking his medication. When asked if he wants to get up and go to any activity, the patient shook his head. OBJECTIVE: The patient continued to be depressed and withdrawn. The patient denied any psychotic symptoms. Staff reported that the patient has been doing okay. The patient has not been up today. The patient has been compliant with care and treatment. The patient took his medications without any problem. Staff reported that there were no episodes of any behavioral problem. ASSESSMENT: 1. Vascular dementia with depression and possibly psychosis with behavioral disturbance. 2. Mood disorder, depressed due to medical condition with possibly psychosis due to medical condition. 3. Impulse control disorder, not otherwise specified. 4. Personality change due to medical condition. PLAN: We will continue the patient on current medications and monitor for any change in his condition. [facility]# [id number] SUZAN
[2018-08-26] MEDS: INSULIN LISPRO SLIDING SCALE 100 UNITS/ML UNIT SUBQ SCH ×4 (06:43→20:43)
[2018-08-26] MEDS: Insulin Glargine 100 units/ml 10ml Vial SUBQ SCH (09:01)
[2018-08-26] MEDS: Lactobacillus Rhamnosus GG 15 Billion CFU CAP.SPRINK PO SCH ×2 (09:07→16:47)
[2018-08-26] MEDS: Lactulose 10 Gm/15 mL 30mL UDC PO SCH ×2 (09:07→16:47)
[2018-08-26] MEDS: Multivitamin w/ Minerals Tab PO SCH (09:08)
--- NOTE | 2018-08-26 12:37 | Internal Medicine Prog Note ---
Internal Medicine Subjective - Subjective Patient seen and examined:: with staff, chart reviewed Patient is:: awake, verbal, interactive, in wheelchair Per staff patient has:: no adverse event, no episodes of fall, eating well, tolerating meds Internal Medicine Objective - Results Result Diagrams: 08/22/18 18:00 08/22/18 18:00 Recent Labs: Laboratory Last Values WBC 5.3 Th/cmm (4.8-10.8) 08/22/18 18:00 RBC 4.24 Mil/cmm (4.30-5.70) L 08/22/18 18:00 Hgb 11.9 gm/dL (12-16) L 08/22/18 18:00 Hct 36.9 % (41.0-60) L 08/22/18 18:00 MCV 87.0 fl (80-99) 08/22/18 18:00 MCH 28.1 pg (26.0-30.0) 08/22/18 18:00 MCHC Differential 32.2 pg (28.0-36.0) 08/22/18 18:00 RDW 13.5 % (11.5-20.0) 08/22/18 18:00 Plt Count 159 Th/cmm (150-400) 08/22/18 18:00 MPV 8.6 fl 08/22/18 18:00 Neutrophils % 51.3 % (40.0-80.0) 08/22/18 18:00 Lymphocytes % 36.7 % (20.0-50.0) 08/22/18 18:00 Monocytes % 9.3 % (2.0-10.0) 08/22/18 18:00 Eosinophils % 2.1 % (0.0-5.0) 08/22/18 18:00 Basophils % 0.6 % (0.0-2.0) 08/22/18 18:00 Sodium 133 mEq/L (136-145) L 08/22/18 18:00 Potassium 3.9 mEq/L (3.5-5.1) 08/22/18 18:00 Chloride 98 mEq/L (98-107) 08/22/18 18:00 Carbon Dioxide 26.1 mEq/L (21.0-31.0) 08/22/18 18:00 Anion Gap 12.8 (7.0-16.0) 08/22/18 18:00 BUN 24 mg/dL (7-25) 08/22/18 18:00 Creatinine 1.7 mg/dL (0.7-1.3) H 08/22/18 18:00 Est GFR ( Amer) 52.6 ml/min (>90) 08/22/18 18:00 Est GFR (Non-Af Amer) 43.5 ml/min 08/22/18 18:00 BUN/Creatinine Ratio 14.1 08/22/18 18:00 Glucose 445 mg/dL (70-105) H 08/24/18 16:57 POC Glucose 129 MG/DL (70 - 105) H 08/26/18 06:42 Calcium 9.7 mg/dL (8.6-10.3) 08/22/18 18:00 Total Bilirubin 0.4 mg/dL (0.3-1.0) 08/22/18 18:00 AST 31 U/L (13-39) 08/22/18 18:00 ALT 71 U/L (7-52) H 08/22/18 18:00 Alkaline Phosphatase 149 U/L (34-104) H 08/22/18 18:00 Troponin I < 0.01 ng/mL (0.01-0.05) L 08/22/18 18:00 Total Protein 7.4 gm/dL (6.0-8.3) 08/22/18 18:00 Albumin 4.0 gm/dL (4.2-5.5) L 08/22/18 18:00 Globulin 3.4 gm/dL 08/22/18 18:00 Albumin/Globulin Ratio 1.2 (1.0-1.8) 08/22/18 18:00 Triglycerides 121 mg/dL (<150) 08/23/18 06:00 Cholesterol 151 mg/dL (<200) 08/23/18 06:00 LDL Cholesterol Direct 109 mg/dL (75-193) 08/23/18 06:00 HDL Cholesterol 24 mg/dL (23-92) 08/23/18 06:00 TSH 5.39 uIU/ml (0.34-5.60) 08/22/18 18:00 Urine Source CLEAN C 08/22/18 18:25 Urine Color YELLOW 08/22/18 18:25 Urine Clarity CLEAR (CLEAR) 08/22/18 18:25 Urine pH 6.0 (4.6 - 8.0) 08/22/18 18:25 Ur Specific [place] 1.010 (1.005-1.030) 08/22/18 18:25 Urine Protein NEGATIVE mg/dL (NEGATIVE) 08/22/18 18:25 Urine Glucose (UA) >=1000 mg/dL (NEGATIVE) H 08/22/18 18:25 Urine Ketones NEGATIVE mg/dL (NEGATIVE) 08/22/18 18:25 Urine Blood NEGATIVE (NEGATIVE) 08/22/18 18:25 Urine Nitrate NEGATIVE (NEGATIVE) 08/22/18 18:25 Urine Bilirubin NEGATIVE (NEGATIVE) 08/22/18 18:25 Urine Urobilinogen 0.2 E.U./dL (0.2 - 1.0) 08/22/18 18:25 Ur Leukocyte Esterase NEGATIVE (NEGATIVE) 08/22/18 18:25 Urine RBC 0-2 /hpf (0-5) H 08/22/18 18:25 Urine WBC 2-5 /hpf (0-5) 08/22/18 18:25 Ur Epithelial Cells OCCASIONAL /lpf (FEW) 08/22/18 18:25 Urine Bacteria FEW /hpf (NONE SEEN) 08/22/18 18:25 Salicylates < 25.0 mg/L (30.0-100.0) L 08/22/18 18:00 Urine Opiates Screen NEGATIVE (NEGATIVE) 08/22/18 17:30 Urine Methadone Screen NEGATIVE (NEGATIVE) 08/22/18 17:30 Acetaminophen < 10.0 ug/mL (10.0-30.0) L 08/22/18 18:00 Ur Barbiturates Screen NEGATIVE (NEGATIVE) 08/22/18 17:30 Ur Tricyclics Screen POSITIVE (NEGATIVE) H 08/22/18 17:30 Ur Phencyclidine Scrn NEGATIVE (NEGATIVE) 08/22/18 17:30 Amphetamines Screen NEGATIVE (NEGATIVE) 08/22/18 17:30 U Methamphetamines Scrn NEGATIVE (NEGATIVE) 08/22/18 17:30 U Benzodiazepines Scrn NEGATIVE (NEGATIVE) 08/22/18 17:30 U Cocaine Metab Screen NEGATIVE (NEGATIVE) 08/22/18 17:30 U Cannabinoids Screen NEGATIVE (NEGATIVE) 08/22/18 17:30 Ethyl Alcohol < 10 mg/dL (0-10) 08/22/18 18:00 RPR NONREACTIVE (NONREACTIVE) 08/22/18 18:00 - Physical Exam Vitals and I&O: Vital Signs Temp 98.2 F 08/26/18 06:36 Pulse 80 08/26/18 09:10 Resp 20 08/26/18 06:36 BP 149/95 08/26/18 09:10 Pulse Ox 95 08/26/18 06:36 Intake & Output 08/25/18 08/26/18 08/26/18 18:59 06:59 18:59 Intake Total 1500 480 Balance 1500 480 Intake: Oral 1500 480 Other: # Voids 4 2 # Bowel Movements 0 Active Medications: Current Medications Acetaminophen/Hydrocodone Bitart ([place] 5mg/325mg) 1 tab PO Q4H PRN PRN Reason: Pain (Moderate) Stop: 10/22/18 10:57 Last Admin: 08/23/18 11:29 Dose: 1 tab Al Hydrox/Mg Hydrox/Simethicone (Maalox) 30 ml PO Q4HR PRN PRN Reason: GI DISTRESS Stop: 10/21/18 23:15 Amlodipine Besylate (Norvasc) 10 mg PO DAILY [facility] Stop: 10/23/18 08:59 Last Admin: 08/26/18 09:09 Dose: 10 mg Ascorbic Acid (Vitamin C) 500 mg PO DAILY [facility] Stop: 10/23/18 08:59 Last Admin: 08/26/18 09:08 Dose: 500 mg Cholecalciferol (Vitamin D3) 1,000 iu PO DAILY [facility] Stop: 10/23/18 08:59 Last Admin: 08/26/18 09:07 Dose: 1,000 iu Citalopram Hydrobromide (Celexa) 20 mg PO DAILY [facility]; Protocol Stop: 10/23/18 08:59 Last Admin: 08/26/18 09:09 Dose: 20 mg Dextrose (D50w) 50 ml IVP PRN PRN PRN Reason: BS below 70 & not tolerate po Stop: 10/22/18 11:31 Dextrose (Glutose 40%) 18.75 gm PO PRN PRN PRN Reason: BS below 70 & tolerate po Stop: 10/22/18 11:31 Docusate Sodium (Colace) 250 mg PO BID [facility] Stop: 10/22/18 16:59 Last Admin: 08/26/18 09:09 Dose: 250 mg Furosemide (Lasix) 40 mg PO DAILY [facility] Stop: 10/23/18 08:59 Last Admin: 08/26/18 09:08 Dose: 40 mg Gabapentin (Neurontin) 300 mg PO BID [facility] Stop: 10/22/18 16:59 Last Admin: 08/26/18 09:09 Dose: 300 mg Glucagon (Glucagen) 1 mg IM PRN PRN PRN Reason: BS below 70&dextrose ineffecti Stop: 10/22/18 11:31 Insulin Glargine (Lantus Insulin) 75 units SUBQ BID [facility] Stop: 10/22/18 16:59 Last Admin: 08/26/18 09:01 Dose: 75 units Insulin Human Lispro (Humalog Insulin Sliding Scale) 0 units SUBQ [facility]; Protocol Stop: 10/22/18 16:29 Last Admin: 08/26/18 12:04 Dose: 6 units Lactobacillus Rhamnosus (Culturelle 15b) 1 each PO BID [facility] Stop: 10/23/18 08:59 Last Admin: 08/26/18 09:07 Dose: 1 each Lactulose (Cephulac) 20 gm PO DAILY PRN PRN Reason: Constipation Stop: 10/23/18 08:59 Lactulose (Cephulac) 20 gm PO BID [facility] Stop: 10/22/18 16:59 Last Admin: 08/26/18 09:07 Dose: 20 gm Levetiracetam (Keppra) 500 mg PO BID [facility] Stop: 10/22/18 16:59 Last Admin: 08/26/18 09:08 Dose: 500 mg Lorazepam (Ativan) 0.5 mg PO Q4HR PRN; Protocol PRN Reason: Anxiety Stop: 09/21/18 23:15 Magnesium Hydroxide (Milk Of Magnesia) 30 ml PO HS PRN PRN Reason: Constipation Metoprolol Tartrate (Lopressor) 100 mg PO BID [facility] Stop: 10/22/18 16:59 Last Admin: 08/26/18 09:10 Dose: 100 mg Mupirocin (Bactroban Oint) 1 appl NS BID [facility] Stop: 08/30/18 09:01 Last Admin: 08/26/18 09:00 Dose: 1 appl Quetiapine Fumarate (Seroquel) 100 mg PO BID [facility]; Protocol Stop: 10/23/18 08:59 Last Admin: 08/26/18 09:09 Dose: 100 mg Simvastatin (Zocor) 10 mg PO HS [facility]; Protocol Stop: 10/22/18 20:59 Last Admin: 08/25/18 20:36 Dose: 10 mg Zolpidem Tartrate (Ambien) 5 mg PO HS PRN PRN Reason: Insomnia Stop: 10/21/18 23:15 General: alert HEENT: NC/AT, PERRLA, EOMI Neck: Supple, No JVD Lungs: CTAB Cardiovascular: RRR, Normal S1, Normal S2, without murmur Abdomen: soft, globular, positive bowel sound Extremities: excoriation Neurological: no change Internal Medicine Assmt/Plan - Assessment Assessment: ASSESSMENT AND PLAN: 1. History of stroke, seizure. 2. Hypertension. 3. Hypercholesterolemia. 4. Psych disorder. 5. Diabetes. 6. Anemia. 7. Hyponatremia. 8. Renal insufficiency. - Plan Plan: PLAN: Continue the patient on insulin sliding scale. on lantus Adjust the patient's antihypertensive medication. Adjust the patient's __dm__ medication including insulin. We will monitor the patient closely. Psychiatry to manage the patient for psych issues. Nutritional Asmnt/Malnutr-PDOC - Dietary Evaluation Malnutrition Findings (Please click <Entered> for more info): Nutritional Asmnt/Malnutrition Start: 08/26/18 11: 01 Text: Status: Active Freq: Protocol: Document 08/26/18 11:04 MORTEZA (Rec: 08/26/18 11:26 MORTEZA ARNOLD- [email or web address]) Nutritional Asmnt/Malnutrition Patient General Information Nutritional Screening Moderate Risk Diagnosis Incrased depression, confusion Pertinent Medical Hx/Surgical Hx HTN, stroke, DM, psych disorder Current Diet Order/ Nutrition Support Mechanical soft, NCS, YVETTE Patient / S.O Not Indicated Pertinent Medications maalox, Vitamin C, Vitamin D3, D50W, colace, lasix, glucagon , lantus, humalog, culturelle, lactulose, MOM Pertinent Labs (08/22) Na 133, Cr 1.7, ALT 71, Alkaline phos 149, Albumin 4, TAG 261 (now normalized), glucose ranging 239-445 Nutritional Hx/Data Height 1.73 m Height (Calculated Centimeters) 172.7 Current Weight (lbs) 125.191 kg Weight (Calculated Kilograms) 125.2 Weight (Calculated Grams) 957576.5 [place] Body Weight 154 % [place] Body Weight 179 Body Mass Index (BMI) 41.9 Recent Weight Change No Weight Status Morbidly Obese GI Symptoms GI Symptoms None Last BM 08/23 x 1 Difficult in: None Food Allergies No Cultural/Ethnic/Jainism Belief none indicated Usual diet at home unknown Skin Integrity/Comment: Trey 20, intact Current %PO Good (75-100%) Estimated Nutritional Goals BEE in Kcals: Adj wt of IBW Calories/Kcals/Kg adj wt 83.8kg 25-30 kcal/kg Kcals Calculated ~5649-8532 kcal/day Protein: Adj wt of IBW Protein g/k-1.2 gm/kg Protein Calculated ~80-100 gm/day Fluid: ml ~6013-7496 ml/day (1 ml/kcal) Nutritional Problem 1. Problem Problem Altered nutrition related lab values related to Etiology hyperglycemia, electrolyte imbalance Signs/Symptoms: Na 133, glucose ranging 239- 445 Intervention/Recommendation Comments 1. Consider modifying diet to 75gm CCHO, No added salt, mechanical soft. 2. MD to adjust insulin regimen for optimal glycemic control. 3. Consider fluid restriction if patient remains hyponatremic. Expected Outcomes/Goals Expected Outcomes/Goals PO intake to meet >75% of nutritional needs, weight stability or trend toward ideal body weight, skin intact , nutrition related labs to approach WNL. F/U MR 08/29-
--- NOTE | 2018-08-27 00:10 | Progress Notes ---
DATE: 08/26/2018 SUBJECTIVE: The patient was in a wheelchair, in the activity room, propelling himself about. The patient was cheerful this morning. The patient smiled when greeted. The patient indicated that he is doing okay, that he ate and slept okay. When asked why is he using the wheelchair, the patient just smile. The patient denied any auditory or visual hallucination. No delusion. When asked if he is depressed, the patient shook his head. The patient reported that his daughter visited. The patient was able to say that he has 4 daughters and 3 sons. When asked where they lived, he stated [place]. OBJECTIVE: The patient is more alert today. The patient is more pleasant and cheerful today. The patient does not exhibit any psychotic symptoms or behavioral problem. The staff reported that the patient has been doing okay. No report of any behavioral issue today. However, the staff reported that yesterday the patient had an episode where he was agitated. Staff reported that his blood sugar has been okay. He has been compliant with his medications. The patient was able to follow direction. The staff reported that his daughter visited. ASSESSMENT: Vascular dementia with depression and behavioral disturbance; Impulse control disorder, not otherwise specified; Personality change due to medical condition. PLAN: We will continue the patient on current medications and monitor his response to the medication and adjust medication as needed. JOB# [id number] SUZAN
[2018-08-27] MEDS: INSULIN LISPRO SLIDING SCALE 100 UNITS/ML UNIT SUBQ SCH ×4 (06:46→21:09)
[2018-08-27] MEDS: Insulin Glargine 100 units/ml 10ml Vial SUBQ SCH ×3 (07:50→16:57)
[2018-08-27] MEDS: Lactulose 10 Gm/15 mL 30mL UDC PO SCH ×2 (09:24→16:24)
[2018-08-27] MEDS: Lactobacillus Rhamnosus GG 15 Billion CFU CAP.SPRINK PO SCH ×2 (09:26→16:24)
[2018-08-27] MEDS: Multivitamin w/ Minerals Tab PO SCH (09:26)
--- NOTE | 2018-08-27 12:29 | Internal Medicine Prog Note ---
Internal Medicine Subjective - Subjective Patient seen and examined:: with staff, chart reviewed Patient is:: awake, verbal, interactive, in wheelchair Per staff patient has:: no adverse event, no episodes of fall, eating well, tolerating meds Internal Medicine Objective - Results Result Diagrams: 08/22/18 18:00 08/22/18 18:00 Recent Labs: Laboratory Last Values WBC 5.3 Th/cmm (4.8-10.8) 08/22/18 18:00 RBC 4.24 Mil/cmm (4.30-5.70) L 08/22/18 18:00 Hgb 11.9 gm/dL (12-16) L 08/22/18 18:00 Hct 36.9 % (41.0-60) L 08/22/18 18:00 MCV 87.0 fl (80-99) 08/22/18 18:00 MCH 28.1 pg (26.0-30.0) 08/22/18 18:00 MCHC Differential 32.2 pg (28.0-36.0) 08/22/18 18:00 RDW 13.5 % (11.5-20.0) 08/22/18 18:00 Plt Count 159 Th/cmm (150-400) 08/22/18 18:00 MPV 8.6 fl 08/22/18 18:00 Neutrophils % 51.3 % (40.0-80.0) 08/22/18 18:00 Lymphocytes % 36.7 % (20.0-50.0) 08/22/18 18:00 Monocytes % 9.3 % (2.0-10.0) 08/22/18 18:00 Eosinophils % 2.1 % (0.0-5.0) 08/22/18 18:00 Basophils % 0.6 % (0.0-2.0) 08/22/18 18:00 Sodium 133 mEq/L (136-145) L 08/22/18 18:00 Potassium 3.9 mEq/L (3.5-5.1) 08/22/18 18:00 Chloride 98 mEq/L (98-107) 08/22/18 18:00 Carbon Dioxide 26.1 mEq/L (21.0-31.0) 08/22/18 18:00 Anion Gap 12.8 (7.0-16.0) 08/22/18 18:00 BUN 24 mg/dL (7-25) 08/22/18 18:00 Creatinine 1.7 mg/dL (0.7-1.3) H 08/22/18 18:00 Est GFR ( Amer) 52.6 ml/min (>90) 08/22/18 18:00 Est GFR (Non-Af Amer) 43.5 ml/min 08/22/18 18:00 BUN/Creatinine Ratio 14.1 08/22/18 18:00 Glucose 445 mg/dL (70-105) H 08/24/18 16:57 POC Glucose 129 MG/DL (70 - 105) H 08/26/18 06:42 Calcium 9.7 mg/dL (8.6-10.3) 08/22/18 18:00 Total Bilirubin 0.4 mg/dL (0.3-1.0) 08/22/18 18:00 AST 31 U/L (13-39) 08/22/18 18:00 ALT 71 U/L (7-52) H 08/22/18 18:00 Alkaline Phosphatase 149 U/L (34-104) H 08/22/18 18:00 Troponin I < 0.01 ng/mL (0.01-0.05) L 08/22/18 18:00 Total Protein 7.4 gm/dL (6.0-8.3) 08/22/18 18:00 Albumin 4.0 gm/dL (4.2-5.5) L 08/22/18 18:00 Globulin 3.4 gm/dL 08/22/18 18:00 Albumin/Globulin Ratio 1.2 (1.0-1.8) 08/22/18 18:00 Triglycerides 121 mg/dL (<150) 08/23/18 06:00 Cholesterol 151 mg/dL (<200) 08/23/18 06:00 LDL Cholesterol Direct 109 mg/dL (75-193) 08/23/18 06:00 HDL Cholesterol 24 mg/dL (23-92) 08/23/18 06:00 TSH 5.39 uIU/ml (0.34-5.60) 08/22/18 18:00 Urine Source CLEAN C 08/22/18 18:25 Urine Color YELLOW 08/22/18 18:25 Urine Clarity CLEAR (CLEAR) 08/22/18 18:25 Urine pH 6.0 (4.6 - 8.0) 08/22/18 18:25 Ur Specific [place] 1.010 (1.005-1.030) 08/22/18 18:25 Urine Protein NEGATIVE mg/dL (NEGATIVE) 08/22/18 18:25 Urine Glucose (UA) >=1000 mg/dL (NEGATIVE) H 08/22/18 18:25 Urine Ketones NEGATIVE mg/dL (NEGATIVE) 08/22/18 18:25 Urine Blood NEGATIVE (NEGATIVE) 08/22/18 18:25 Urine Nitrate NEGATIVE (NEGATIVE) 08/22/18 18:25 Urine Bilirubin NEGATIVE (NEGATIVE) 08/22/18 18:25 Urine Urobilinogen 0.2 E.U./dL (0.2 - 1.0) 08/22/18 18:25 Ur Leukocyte Esterase NEGATIVE (NEGATIVE) 08/22/18 18:25 Urine RBC 0-2 /hpf (0-5) H 08/22/18 18:25 Urine WBC 2-5 /hpf (0-5) 08/22/18 18:25 Ur Epithelial Cells OCCASIONAL /lpf (FEW) 08/22/18 18:25 Urine Bacteria FEW /hpf (NONE SEEN) 08/22/18 18:25 Salicylates < 25.0 mg/L (30.0-100.0) L 08/22/18 18:00 Urine Opiates Screen NEGATIVE (NEGATIVE) 08/22/18 17:30 Urine Methadone Screen NEGATIVE (NEGATIVE) 08/22/18 17:30 Acetaminophen < 10.0 ug/mL (10.0-30.0) L 08/22/18 18:00 Ur Barbiturates Screen NEGATIVE (NEGATIVE) 08/22/18 17:30 Ur Tricyclics Screen POSITIVE (NEGATIVE) H 08/22/18 17:30 Ur Phencyclidine Scrn NEGATIVE (NEGATIVE) 08/22/18 17:30 Amphetamines Screen NEGATIVE (NEGATIVE) 08/22/18 17:30 U Methamphetamines Scrn NEGATIVE (NEGATIVE) 08/22/18 17:30 U Benzodiazepines Scrn NEGATIVE (NEGATIVE) 08/22/18 17:30 U Cocaine Metab Screen NEGATIVE (NEGATIVE) 08/22/18 17:30 U Cannabinoids Screen NEGATIVE (NEGATIVE) 08/22/18 17:30 Ethyl Alcohol < 10 mg/dL (0-10) 08/22/18 18:00 RPR NONREACTIVE (NONREACTIVE) 08/22/18 18:00 - Physical Exam Vitals and I&O: Vital Signs Temp 97.1 F 08/26/18 20:00 Pulse 80 08/27/18 09:25 Resp 19 08/26/18 20:00 BP 132/76 08/27/18 09:25 Pulse Ox 97 08/26/18 20:00 Intake & Output 08/26/18 08/27/18 08/27/18 18:59 06:59 18:59 Intake Total 120 Balance 120 Intake: Oral 120 Other: # Voids 2 2 # Bowel Movements 0 Active Medications: Current Medications Acetaminophen/Hydrocodone Bitart (Dinosaur 5mg/325mg) 1 tab PO Q4H PRN PRN Reason: Pain (Moderate) Stop: 10/22/18 10:57 Last Admin: 08/23/18 11:29 Dose: 1 tab Al Hydrox/Mg Hydrox/Simethicone (Maalox) 30 ml PO Q4HR PRN PRN Reason: GI DISTRESS Stop: 10/21/18 23:15 Amlodipine Besylate (Norvasc) 10 mg PO DAILY [facility] Stop: 10/23/18 08:59 Last Admin: 08/27/18 09:25 Dose: 10 mg Ascorbic Acid (Vitamin C) 500 mg PO DAILY [facility] Stop: 10/23/18 08:59 Last Admin: 08/27/18 09:26 Dose: 500 mg Cholecalciferol (Vitamin D3) 1,000 iu PO DAILY [facility] Stop: 10/23/18 08:59 Last Admin: 08/27/18 09:26 Dose: 1,000 iu Citalopram Hydrobromide (Celexa) 20 mg PO DAILY [facility]; Protocol Stop: 10/23/18 08:59 Last Admin: 08/27/18 09:26 Dose: 20 mg Dextrose (D50w) 50 ml IVP PRN PRN PRN Reason: BS below 70 & not tolerate po Stop: 10/22/18 11:31 Dextrose (Glutose 40%) 18.75 gm PO PRN PRN PRN Reason: BS below 70 & tolerate po Stop: 10/22/18 11:31 Docusate Sodium (Colace) 250 mg PO BID [facility] Stop: 10/22/18 16:59 Last Admin: 08/27/18 09:26 Dose: 250 mg Furosemide (Lasix) 40 mg PO DAILY [facility] Stop: 10/23/18 08:59 Last Admin: 08/27/18 09:24 Dose: 40 mg Gabapentin (Neurontin) 300 mg PO BID [facility] Stop: 10/22/18 16:59 Last Admin: 08/27/18 09:26 Dose: 300 mg Glucagon (Glucagen) 1 mg IM PRN PRN PRN Reason: BS below 70&dextrose ineffecti Stop: 10/22/18 11:31 Insulin Glargine (Lantus Insulin) 75 units SUBQ BID [facility] Stop: 10/22/18 16:59 Last Admin: 08/27/18 09:28 Dose: 50 units Insulin Human Lispro (Humalog Insulin Sliding Scale) 0 units SUBQ [facility]; Protocol Stop: 10/22/18 16:29 Last Admin: 08/27/18 11:30 Dose: 8 units Lactobacillus Rhamnosus (Culturelle 15b) 1 each PO BID [facility] Stop: 10/23/18 08:59 Last Admin: 08/27/18 09:26 Dose: 1 each Lactulose (Cephulac) 20 gm PO DAILY PRN PRN Reason: Constipation Stop: 10/23/18 08:59 Lactulose (Cephulac) 20 gm PO BID [facility] Stop: 10/22/18 16:59 Last Admin: 08/27/18 09:24 Dose: 20 gm Levetiracetam (Keppra) 500 mg PO BID [facility] Stop: 10/22/18 16:59 Last Admin: 08/27/18 09:26 Dose: 500 mg Lorazepam (Ativan) 0.5 mg PO Q4HR PRN; Protocol PRN Reason: Anxiety Stop: 09/21/18 23:15 Magnesium Hydroxide (Milk Of Magnesia) 30 ml PO HS PRN PRN Reason: Constipation Metoprolol Tartrate (Lopressor) 100 mg PO BID [facility] Stop: 10/22/18 16:59 Last Admin: 08/27/18 09:25 Dose: 100 mg Mupirocin (Bactroban Oint) 1 appl NS BID [facility] Stop: 08/30/18 09:01 Last Admin: 08/27/18 09:00 Dose: 1 appl Oxcarbazepine (Trileptal) 150 mg PO BID [facility]; Protocol Stop: 10/26/18 16:59 Quetiapine Fumarate (Seroquel) 100 mg PO BID [facility]; Protocol Stop: 10/23/18 08:59 Last Admin: 08/27/18 09:26 Dose: 100 mg Simvastatin (Zocor) 10 mg PO HS [facility]; Protocol Stop: 10/22/18 20:59 Last Admin: 08/26/18 21:04 Dose: 10 mg Zolpidem Tartrate (Ambien) 5 mg PO HS PRN PRN Reason: Insomnia Stop: 10/21/18 23:15 General: alert HEENT: NC/AT, PERRLA, EOMI Neck: Supple, No JVD Lungs: CTAB Cardiovascular: RRR, Normal S1, Normal S2, without murmur Abdomen: soft, globular, positive bowel sound Extremities: excoriation Neurological: no change Internal Medicine Assmt/Plan - Assessment Assessment: ASSESSMENT AND PLAN: 1. History of stroke, seizure. 2. Hypertension. 3. Hypercholesterolemia. 4. Psych disorder. 5. Diabetes. 6. Anemia. 7. Hyponatremia. 8. Renal insufficiency. - Plan Plan: PLAN: Continue the patient on insulin sliding scale. on lantus Adjust the patient's antihypertensive medication. Adjust the patient's __dm__ medication including insulin. We will monitor the patient closely. Psychiatry to manage the patient for psych issues. Nutritional Asmnt/Malnutr-PDOC - Dietary Evaluation Malnutrition Findings (Please click <Entered> for more info): Nutritional Asmnt/Malnutrition Start: 08/26/18 11: 01 Text: Status: Complete Freq: Protocol: Document 08/26/18 11:04 MORTEZA (Rec: 08/26/18 11:26 MORTEZA ARNOLD- [email or web address]) Nutritional Asmnt/Malnutrition Patient General Information Nutritional Screening Moderate Risk Diagnosis Incrased depression, confusion Pertinent Medical Hx/Surgical Hx HTN, stroke, DM, psych disorder Subjective Information Patient in chair at time of visit. Tolerating current diet . Current Diet Order/ Nutrition Support Mechanical soft, NCS, YVETTE Patient / S.O Not Indicated Pertinent Medications maalox, Vitamin C, Vitamin D3, D50W, colace, lasix, glucagon , lantus, humalog, culturelle, lactulose, MOM Pertinent Labs (08/22) Na 133, Cr 1.7, ALT 71, Alkaline phos 149, Albumin 4, TAG 261 (now normalized), glucose ranging 239-445 Nutritional Hx/Data Height 1.73 m Height (Calculated Centimeters) 172.7 Current Weight (lbs) 125.191 kg Weight (Calculated Kilograms) 125.2 Weight (Calculated Grams) 001571.5 Sacul Body Weight 154 % Sacul Body Weight 179 Body Mass Index (BMI) 41.9 Recent Weight Change No Weight Status Morbidly Obese GI Symptoms GI Symptoms None Last BM 08/23 x 1 Difficult in: None Food Allergies No Cultural/Ethnic/Anabaptist Belief none indicated Usual diet at home unknown Skin Integrity/Comment: Trey 20, intact Current %PO Good (75-100%) Estimated Nutritional Goals BEE in Kcals: Adj wt of IBW Calories/Kcals/Kg adj wt 83.8kg 25-30 kcal/kg Kcals Calculated ~4418-6126 kcal/day Protein: Adj wt of IBW Protein g/k-1.2 gm/kg Protein Calculated ~80-100 gm/day Fluid: ml ~4663-8592 ml/day (1 ml/kcal) Nutritional Problem 1. Problem Problem Altered nutrition related lab values related to Etiology hyperglycemia, electrolyte imbalance Signs/Symptoms: Na 133, glucose ranging 239- 445 Intervention/Recommendation Comments 1. Consider modifying diet to 75gm CCHO, No added salt, mechanical soft. 2. MD to adjust insulin regimen for optimal glycemic control. 3. Consider fluid restriction if patient remains hyponatremic. Expected Outcomes/Goals Expected Outcomes/Goals PO intake to meet >75% of nutritional needs, weight stability or trend toward ideal body weight, skin intact , nutrition related labs to approach WNL. F/U MR 08/29-
--- NOTE | 2018-08-28 00:12 | Progress Notes ---
DATE: 08/27/2018 SUBJECTIVE: The patient was asleep in bed when approached. The patient responded to physical and verbal stimuli. The patient opened his eyes and was pleasant. The patient smiled when greeted. The patient indicated that he was up earlier and had breakfast. The patient indicated that he has been eating and sleeping okay. When asked if he has any episodes of being irritated and/or agitated, the patient nodded. When I asked what happened, the patient stated that the staff tried to fill out menu without his input. Unable to get patient to say when this happened. The patient continued to deny any auditory or visual hallucination or delusion. OBJECTIVE: The patient was pleasant when greeted. When I asked if he has episodes of being agitated, his facial expression changed. The patient was more mccoy. The patient reported that people try to fill out the menu for him without his input. Staff reported that the patient has episodes of getting agitated yesterday morning during activity. Staff reported that it has to do with his menu. However, the staff was not able to give the whole detail. The staff also reported that the patient continued to have recurrent episodes where he gets irritated and agitated, but more or less redirectable. The patient has been eating and sleeping okay. The patient has been compliant with his medications. ASSESSMENT: 1. Vascular dementia with behavior disturbance and possibly psychosis. 2. 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 3. Impulse control disorder, not otherwise specified. 4. Personality change due to medical condition. PLAN: We will add Trileptal 150 mg p.o. q.12 hours to his current medications for poor impulse control. We will observe how the patient responds to the medication, and for any potential side effects. JOB# [id number] SUZAN
[2018-08-28] MEDS: INSULIN LISPRO SLIDING SCALE 100 UNITS/ML UNIT SUBQ SCH ×4 (06:37→20:34)
[2018-08-28] MEDS: Multivitamin w/ Minerals Tab PO SCH (08:55)
[2018-08-28] MEDS: Insulin Glargine 100 units/ml 10ml Vial SUBQ SCH ×2 (09:00→20:32)
[2018-08-28] MEDS: Lactobacillus Rhamnosus GG 15 Billion CFU CAP.SPRINK PO SCH ×2 (09:00→16:49)
[2018-08-28] MEDS: Lactulose 10 Gm/15 mL 30mL UDC PO SCH ×2 (09:00→16:48)
--- NOTE | 2018-08-28 09:31 | Progress Notes ---
DATE: 08/28/2018 SUBJECTIVE: The patient was resting in bed. When approached, the patient responded to verbal stimuli. The patient opened his eyes and put up his hand for a handshake. The patient reported that he is doing okay. He has not had breakfast yet. The patient reports that one of his daughters visited yesterday, which is different than the daughter that came today before. When asked if he got things worked out for his menu, the patient stated "I think so." The patient reported that he is sleeping okay. The patient denied any episodes of agitation. The patient denied any auditory or visual hallucination or delusion. OBJECTIVE: The patient appears to be calm and cooperative. Staff reported that the patient has been doing okay. No behavioral problem. The patient initially refused insulin shot, but after his daughter intervened, the patient allowed the nurse to give him the insulin shot. Staff reported that the patient has been eating and sleeping okay. No behavioral issue yesterday. ASSESSMENT: Vascular dementia with depression and behavioral disturbance and possibly psychosis. Mood disorder, depressed and possibly psychosis due to medical condition; impulse control disorder, not otherwise specified, personality change due to medical condition. PLAN: We will continue the patient on current medications including Ativan, Seroquel, Trileptal and Celexa. We will continue to monitor the patient and consider discharging the patient in the next couple of days if there is no recurrent aggressive or psychotic symptoms. JOB# [id number] SUZAN
--- NOTE | 2018-08-28 11:46 | Internal Medicine Prog Note ---
Internal Medicine Subjective - Subjective Patient seen and examined:: with staff, chart reviewed Patient is:: awake, verbal, interactive, in wheelchair Per staff patient has:: no adverse event, no episodes of fall, eating well, tolerating meds Internal Medicine Objective - Results Result Diagrams: 08/22/18 18:00 08/22/18 18:00 Recent Labs: Laboratory Last Values WBC 5.3 Th/cmm (4.8-10.8) 08/22/18 18:00 RBC 4.24 Mil/cmm (4.30-5.70) L 08/22/18 18:00 Hgb 11.9 gm/dL (12-16) L 08/22/18 18:00 Hct 36.9 % (41.0-60) L 08/22/18 18:00 MCV 87.0 fl (80-99) 08/22/18 18:00 MCH 28.1 pg (26.0-30.0) 08/22/18 18:00 MCHC Differential 32.2 pg (28.0-36.0) 08/22/18 18:00 RDW 13.5 % (11.5-20.0) 08/22/18 18:00 Plt Count 159 Th/cmm (150-400) 08/22/18 18:00 MPV 8.6 fl 08/22/18 18:00 Neutrophils % 51.3 % (40.0-80.0) 08/22/18 18:00 Lymphocytes % 36.7 % (20.0-50.0) 08/22/18 18:00 Monocytes % 9.3 % (2.0-10.0) 08/22/18 18:00 Eosinophils % 2.1 % (0.0-5.0) 08/22/18 18:00 Basophils % 0.6 % (0.0-2.0) 08/22/18 18:00 Sodium 133 mEq/L (136-145) L 08/22/18 18:00 Potassium 3.9 mEq/L (3.5-5.1) 08/22/18 18:00 Chloride 98 mEq/L (98-107) 08/22/18 18:00 Carbon Dioxide 26.1 mEq/L (21.0-31.0) 08/22/18 18:00 Anion Gap 12.8 (7.0-16.0) 08/22/18 18:00 BUN 24 mg/dL (7-25) 08/22/18 18:00 Creatinine 1.7 mg/dL (0.7-1.3) H 08/22/18 18:00 Est GFR ( Amer) 52.6 ml/min (>90) 08/22/18 18:00 Est GFR (Non-Af Amer) 43.5 ml/min 08/22/18 18:00 BUN/Creatinine Ratio 14.1 08/22/18 18:00 Glucose 445 mg/dL (70-105) H 08/24/18 16:57 POC Glucose 129 MG/DL (70 - 105) H 08/26/18 06:42 Calcium 9.7 mg/dL (8.6-10.3) 08/22/18 18:00 Total Bilirubin 0.4 mg/dL (0.3-1.0) 08/22/18 18:00 AST 31 U/L (13-39) 08/22/18 18:00 ALT 71 U/L (7-52) H 08/22/18 18:00 Alkaline Phosphatase 149 U/L (34-104) H 08/22/18 18:00 Troponin I < 0.01 ng/mL (0.01-0.05) L 08/22/18 18:00 Total Protein 7.4 gm/dL (6.0-8.3) 08/22/18 18:00 Albumin 4.0 gm/dL (4.2-5.5) L 08/22/18 18:00 Globulin 3.4 gm/dL 08/22/18 18:00 Albumin/Globulin Ratio 1.2 (1.0-1.8) 08/22/18 18:00 Triglycerides 121 mg/dL (<150) 08/23/18 06:00 Cholesterol 151 mg/dL (<200) 08/23/18 06:00 LDL Cholesterol Direct 109 mg/dL (75-193) 08/23/18 06:00 HDL Cholesterol 24 mg/dL (23-92) 08/23/18 06:00 TSH 5.39 uIU/ml (0.34-5.60) 08/22/18 18:00 Urine Source CLEAN C 08/22/18 18:25 Urine Color YELLOW 08/22/18 18:25 Urine Clarity CLEAR (CLEAR) 08/22/18 18:25 Urine pH 6.0 (4.6 - 8.0) 08/22/18 18:25 Ur Specific [place] 1.010 (1.005-1.030) 08/22/18 18:25 Urine Protein NEGATIVE mg/dL (NEGATIVE) 08/22/18 18:25 Urine Glucose (UA) >=1000 mg/dL (NEGATIVE) H 08/22/18 18:25 Urine Ketones NEGATIVE mg/dL (NEGATIVE) 08/22/18 18:25 Urine Blood NEGATIVE (NEGATIVE) 08/22/18 18:25 Urine Nitrate NEGATIVE (NEGATIVE) 08/22/18 18:25 Urine Bilirubin NEGATIVE (NEGATIVE) 08/22/18 18:25 Urine Urobilinogen 0.2 E.U./dL (0.2 - 1.0) 08/22/18 18:25 Ur Leukocyte Esterase NEGATIVE (NEGATIVE) 08/22/18 18:25 Urine RBC 0-2 /hpf (0-5) H 08/22/18 18:25 Urine WBC 2-5 /hpf (0-5) 08/22/18 18:25 Ur Epithelial Cells OCCASIONAL /lpf (FEW) 08/22/18 18:25 Urine Bacteria FEW /hpf (NONE SEEN) 08/22/18 18:25 Salicylates < 25.0 mg/L (30.0-100.0) L 08/22/18 18:00 Urine Opiates Screen NEGATIVE (NEGATIVE) 08/22/18 17:30 Urine Methadone Screen NEGATIVE (NEGATIVE) 08/22/18 17:30 Acetaminophen < 10.0 ug/mL (10.0-30.0) L 08/22/18 18:00 Ur Barbiturates Screen NEGATIVE (NEGATIVE) 08/22/18 17:30 Ur Tricyclics Screen POSITIVE (NEGATIVE) H 08/22/18 17:30 Ur Phencyclidine Scrn NEGATIVE (NEGATIVE) 08/22/18 17:30 Amphetamines Screen NEGATIVE (NEGATIVE) 08/22/18 17:30 U Methamphetamines Scrn NEGATIVE (NEGATIVE) 08/22/18 17:30 U Benzodiazepines Scrn NEGATIVE (NEGATIVE) 08/22/18 17:30 U Cocaine Metab Screen NEGATIVE (NEGATIVE) 08/22/18 17:30 U Cannabinoids Screen NEGATIVE (NEGATIVE) 08/22/18 17:30 Ethyl Alcohol < 10 mg/dL (0-10) 08/22/18 18:00 RPR NONREACTIVE (NONREACTIVE) 08/22/18 18:00 - Physical Exam Vitals and I&O: Vital Signs Temp 97 F 08/28/18 06:12 Pulse 71 08/28/18 09:00 Resp 19 08/28/18 06:12 BP 141/78 08/28/18 09:05 Pulse Ox 99 08/28/18 06:12 Intake & Output 08/27/18 08/28/18 08/28/18 18:59 06:59 18:59 Intake Total 120 Balance 120 Intake: Oral 120 Other: # Voids 3 2 # Bowel Movements 0 Active Medications: Current Medications Acetaminophen/Hydrocodone Bitart ([place] 5mg/325mg) 1 tab PO Q4H PRN PRN Reason: Pain (Moderate) Stop: 10/22/18 10:57 Last Admin: 08/23/18 11:29 Dose: 1 tab Al Hydrox/Mg Hydrox/Simethicone (Maalox) 30 ml PO Q4HR PRN PRN Reason: GI DISTRESS Stop: 10/21/18 23:15 Amlodipine Besylate (Norvasc) 10 mg PO DAILY [facility] Stop: 10/23/18 08:59 Last Admin: 08/28/18 09:00 Dose: 10 mg Ascorbic Acid (Vitamin C) 500 mg PO DAILY [facility] Stop: 10/23/18 08:59 Last Admin: 08/28/18 09:00 Dose: 500 mg Cholecalciferol (Vitamin D3) 1,000 iu PO DAILY [facility] Stop: 10/23/18 08:59 Last Admin: 08/28/18 09:00 Dose: 1,000 iu Citalopram Hydrobromide (Celexa) 20 mg PO DAILY [facility]; Protocol Stop: 10/23/18 08:59 Last Admin: 08/28/18 08:50 Dose: 20 mg Dextrose (D50w) 50 ml IVP PRN PRN PRN Reason: BS below 70 & not tolerate po Stop: 10/22/18 11:31 Dextrose (Glutose 40%) 18.75 gm PO PRN PRN PRN Reason: BS below 70 & tolerate po Stop: 10/22/18 11:31 Docusate Sodium (Colace) 250 mg PO BID [facility] Stop: 10/22/18 16:59 Last Admin: 08/28/18 09:00 Dose: 250 mg Furosemide (Lasix) 40 mg PO DAILY [facility] Stop: 10/23/18 08:59 Last Admin: 08/28/18 09:05 Dose: 40 mg Gabapentin (Neurontin) 300 mg PO BID [facility] Stop: 10/22/18 16:59 Last Admin: 08/28/18 09:00 Dose: 300 mg Glucagon (Glucagen) 1 mg IM PRN PRN PRN Reason: BS below 70&dextrose ineffecti Stop: 10/22/18 11:31 Insulin Glargine (Lantus Insulin) 50 units SUBQ DAILY [facility] Stop: 10/27/18 08:59 Last Admin: 08/28/18 09:00 Dose: 50 units Insulin Glargine (Lantus Insulin) 25 units SUBQ HS [facility] Stop: 10/27/18 20:59 Insulin Human Lispro (Humalog Insulin Sliding Scale) 0 units SUBQ ACHS [facility]; Protocol Stop: 10/22/18 16:29 Last Admin: 08/28/18 06:37 Dose: 2 units Lactobacillus Rhamnosus (Culturelle 15b) 1 each PO BID [facility] Stop: 10/23/18 08:59 Last Admin: 08/28/18 09:00 Dose: 1 each Lactulose (Cephulac) 20 gm PO DAILY PRN PRN Reason: Constipation Stop: 10/23/18 08:59 Lactulose (Cephulac) 20 gm PO BID [facility] Stop: 10/22/18 16:59 Last Admin: 08/28/18 09:00 Dose: 20 gm Levetiracetam (Keppra) 500 mg PO BID [facility] Stop: 10/22/18 16:59 Last Admin: 08/28/18 09:00 Dose: 500 mg Lorazepam (Ativan) 0.5 mg PO Q4HR PRN; Protocol PRN Reason: Anxiety Stop: 09/21/18 23:15 Magnesium Hydroxide (Milk Of Magnesia) 30 ml PO HS PRN PRN Reason: Constipation Metoprolol Tartrate (Lopressor) 100 mg PO BID [facility] Stop: 10/22/18 16:59 Last Admin: 08/28/18 09:00 Dose: 100 mg Mupirocin (Bactroban Oint) 1 appl NS BID [facility] Stop: 08/30/18 09:01 Last Admin: 08/28/18 09:20 Dose: 1 appl Oxcarbazepine (Trileptal) 150 mg PO BID [facility]; Protocol Stop: 10/26/18 16:59 Last Admin: 08/28/18 09:00 Dose: 150 mg Quetiapine Fumarate (Seroquel) 100 mg PO BID [facility]; Protocol Stop: 10/23/18 08:59 Last Admin: 08/28/18 08:50 Dose: 100 mg Simvastatin (Zocor) 10 mg PO HS [facility]; Protocol Stop: 10/22/18 20:59 Last Admin: 08/27/18 21:10 Dose: 10 mg Zolpidem Tartrate (Ambien) 5 mg PO HS PRN PRN Reason: Insomnia Stop: 10/21/18 23:15 General: alert HEENT: NC/AT, PERRLA, EOMI Neck: Supple, No JVD Lungs: CTAB Cardiovascular: RRR, Normal S1, Normal S2, without murmur Abdomen: soft, globular, positive bowel sound Extremities: excoriation Neurological: no change Internal Medicine Assmt/Plan - Assessment Assessment: ASSESSMENT AND PLAN: 1. History of stroke, seizure. 2. Hypertension. 3. Hypercholesterolemia. 4. Psych disorder. 5. Diabetes. 6. Anemia. 7. Hyponatremia. 8. Renal insufficiency. - Plan Plan: PLAN: Continue the patient on insulin sliding scale. on lantus, decrease to 50 u in am, 25 at night Adjust the patient's antihypertensive medication. Adjust the patient's __dm__ medication including insulin. We will monitor the patient closely. Psychiatry to manage the patient for psych issues. Nutritional Asmnt/Malnutr-PDOC - Dietary Evaluation Malnutrition Findings (Please click <Entered> for more info): Nutritional Asmnt/Malnutrition Start: 08/26/18 11: 01 Text: Status: Complete Freq: Protocol: Document 08/26/18 11:04 MORTEZA (Rec: 08/26/18 11:26 MORTEZA ARNOLD- [email or web address]) Nutritional Asmnt/Malnutrition Patient General Information Nutritional Screening Moderate Risk Diagnosis Incrased depression, confusion Pertinent Medical Hx/Surgical Hx HTN, stroke, DM, psych disorder Subjective Information Patient in chair at time of visit. Tolerating current diet . Current Diet Order/ Nutrition Support Mechanical soft, NCS, YVETTE Patient / S.O Not Indicated Pertinent Medications maalox, Vitamin C, Vitamin D3, D50W, colace, lasix, glucagon , lantus, humalog, culturelle, lactulose, MOM Pertinent Labs (08/22) Na 133, Cr 1.7, ALT 71, Alkaline phos 149, Albumin 4, TAG 261 (now normalized), glucose ranging 239-445 Nutritional Hx/Data Height 1.73 m Height (Calculated Centimeters) 172.7 Current Weight (lbs) 125.191 kg Weight (Calculated Kilograms) 125.2 Weight (Calculated Grams) 548557.5 [place] Body Weight 154 % [place] Body Weight 179 Body Mass Index (BMI) 41.9 Recent Weight Change No Weight Status Morbidly Obese GI Symptoms GI Symptoms None Last BM 08/23 x 1 Difficult in: None Food Allergies No Cultural/Ethnic/Confucianist Belief none indicated Usual diet at home unknown Skin Integrity/Comment: Trey 20, intact Current %PO Good (75-100%) Estimated Nutritional Goals BEE in Kcals: Adj wt of IBW Calories/Kcals/Kg adj wt 83.8kg 25-30 kcal/kg Kcals Calculated ~0184-8208 kcal/day Protein: Adj wt of IBW Protein g/k-1.2 gm/kg Protein Calculated ~80-100 gm/day Fluid: ml ~9909-7037 ml/day (1 ml/kcal) Nutritional Problem 1. Problem Problem Altered nutrition related lab values related to Etiology hyperglycemia, electrolyte imbalance Signs/Symptoms: Na 133, glucose ranging 239- 445 Intervention/Recommendation Comments 1. Consider modifying diet to 75gm CCHO, No added salt, mechanical soft. 2. MD to adjust insulin regimen for optimal glycemic control. 3. Consider fluid restriction if patient remains hyponatremic. Expected Outcomes/Goals Expected Outcomes/Goals PO intake to meet >75% of nutritional needs, weight stability or trend toward ideal body weight, skin intact , nutrition related labs to approach WNL. F/U MR 08/29-
[2018-08-29] MEDS: INSULIN LISPRO SLIDING SCALE 100 UNITS/ML UNIT SUBQ SCH ×4 (06:32→20:46)
[2018-08-29] MEDS: Lactulose 10 Gm/15 mL 30mL UDC PO SCH ×2 (09:02→16:47)
[2018-08-29] MEDS: Lactobacillus Rhamnosus GG 15 Billion CFU CAP.SPRINK PO SCH ×2 (09:05→16:44)
[2018-08-29] MEDS: Multivitamin w/ Minerals Tab PO SCH (09:06)
[2018-08-29] MEDS: Insulin Glargine 100 units/ml 10ml Vial SUBQ SCH ×2 (09:19→20:47)
--- NOTE | 2018-08-29 11:36 | Internal Medicine Prog Note ---
Internal Medicine Subjective - Subjective Patient seen and examined:: with staff, chart reviewed Patient is:: awake, verbal, interactive, in wheelchair Per staff patient has:: no adverse event, no episodes of fall, eating well, tolerating meds Internal Medicine Objective - Results Result Diagrams: 08/22/18 18:00 08/22/18 18:00 Recent Labs: Laboratory Last Values WBC 5.3 Th/cmm (4.8-10.8) 08/22/18 18:00 RBC 4.24 Mil/cmm (4.30-5.70) L 08/22/18 18:00 Hgb 11.9 gm/dL (12-16) L 08/22/18 18:00 Hct 36.9 % (41.0-60) L 08/22/18 18:00 MCV 87.0 fl (80-99) 08/22/18 18:00 MCH 28.1 pg (26.0-30.0) 08/22/18 18:00 MCHC Differential 32.2 pg (28.0-36.0) 08/22/18 18:00 RDW 13.5 % (11.5-20.0) 08/22/18 18:00 Plt Count 159 Th/cmm (150-400) 08/22/18 18:00 MPV 8.6 fl 08/22/18 18:00 Neutrophils % 51.3 % (40.0-80.0) 08/22/18 18:00 Lymphocytes % 36.7 % (20.0-50.0) 08/22/18 18:00 Monocytes % 9.3 % (2.0-10.0) 08/22/18 18:00 Eosinophils % 2.1 % (0.0-5.0) 08/22/18 18:00 Basophils % 0.6 % (0.0-2.0) 08/22/18 18:00 Sodium 133 mEq/L (136-145) L 08/22/18 18:00 Potassium 3.9 mEq/L (3.5-5.1) 08/22/18 18:00 Chloride 98 mEq/L (98-107) 08/22/18 18:00 Carbon Dioxide 26.1 mEq/L (21.0-31.0) 08/22/18 18:00 Anion Gap 12.8 (7.0-16.0) 08/22/18 18:00 BUN 24 mg/dL (7-25) 08/22/18 18:00 Creatinine 1.7 mg/dL (0.7-1.3) H 08/22/18 18:00 Est GFR ( Amer) 52.6 ml/min (>90) 08/22/18 18:00 Est GFR (Non-Af Amer) 43.5 ml/min 08/22/18 18:00 BUN/Creatinine Ratio 14.1 08/22/18 18:00 Glucose 445 mg/dL (70-105) H 08/24/18 16:57 POC Glucose 129 MG/DL (70 - 105) H 08/26/18 06:42 Calcium 9.7 mg/dL (8.6-10.3) 08/22/18 18:00 Total Bilirubin 0.4 mg/dL (0.3-1.0) 08/22/18 18:00 AST 31 U/L (13-39) 08/22/18 18:00 ALT 71 U/L (7-52) H 08/22/18 18:00 Alkaline Phosphatase 149 U/L (34-104) H 08/22/18 18:00 Troponin I < 0.01 ng/mL (0.01-0.05) L 08/22/18 18:00 Total Protein 7.4 gm/dL (6.0-8.3) 08/22/18 18:00 Albumin 4.0 gm/dL (4.2-5.5) L 08/22/18 18:00 Globulin 3.4 gm/dL 08/22/18 18:00 Albumin/Globulin Ratio 1.2 (1.0-1.8) 08/22/18 18:00 Triglycerides 121 mg/dL (<150) 08/23/18 06:00 Cholesterol 151 mg/dL (<200) 08/23/18 06:00 LDL Cholesterol Direct 109 mg/dL (75-193) 08/23/18 06:00 HDL Cholesterol 24 mg/dL (23-92) 08/23/18 06:00 TSH 5.39 uIU/ml (0.34-5.60) 08/22/18 18:00 Urine Source CLEAN C 08/22/18 18:25 Urine Color YELLOW 08/22/18 18:25 Urine Clarity CLEAR (CLEAR) 08/22/18 18:25 Urine pH 6.0 (4.6 - 8.0) 08/22/18 18:25 Ur Specific [place] 1.010 (1.005-1.030) 08/22/18 18:25 Urine Protein NEGATIVE mg/dL (NEGATIVE) 08/22/18 18:25 Urine Glucose (UA) >=1000 mg/dL (NEGATIVE) H 08/22/18 18:25 Urine Ketones NEGATIVE mg/dL (NEGATIVE) 08/22/18 18:25 Urine Blood NEGATIVE (NEGATIVE) 08/22/18 18:25 Urine Nitrate NEGATIVE (NEGATIVE) 08/22/18 18:25 Urine Bilirubin NEGATIVE (NEGATIVE) 08/22/18 18:25 Urine Urobilinogen 0.2 E.U./dL (0.2 - 1.0) 08/22/18 18:25 Ur Leukocyte Esterase NEGATIVE (NEGATIVE) 08/22/18 18:25 Urine RBC 0-2 /hpf (0-5) H 08/22/18 18:25 Urine WBC 2-5 /hpf (0-5) 08/22/18 18:25 Ur Epithelial Cells OCCASIONAL /lpf (FEW) 08/22/18 18:25 Urine Bacteria FEW /hpf (NONE SEEN) 08/22/18 18:25 Salicylates < 25.0 mg/L (30.0-100.0) L 08/22/18 18:00 Urine Opiates Screen NEGATIVE (NEGATIVE) 08/22/18 17:30 Urine Methadone Screen NEGATIVE (NEGATIVE) 08/22/18 17:30 Acetaminophen < 10.0 ug/mL (10.0-30.0) L 08/22/18 18:00 Ur Barbiturates Screen NEGATIVE (NEGATIVE) 08/22/18 17:30 Ur Tricyclics Screen POSITIVE (NEGATIVE) H 08/22/18 17:30 Ur Phencyclidine Scrn NEGATIVE (NEGATIVE) 08/22/18 17:30 Amphetamines Screen NEGATIVE (NEGATIVE) 08/22/18 17:30 U Methamphetamines Scrn NEGATIVE (NEGATIVE) 08/22/18 17:30 U Benzodiazepines Scrn NEGATIVE (NEGATIVE) 08/22/18 17:30 U Cocaine Metab Screen NEGATIVE (NEGATIVE) 08/22/18 17:30 U Cannabinoids Screen NEGATIVE (NEGATIVE) 08/22/18 17:30 Ethyl Alcohol < 10 mg/dL (0-10) 08/22/18 18:00 RPR NONREACTIVE (NONREACTIVE) 08/22/18 18:00 - Physical Exam Vitals and I&O: Vital Signs Temp 98.0 F 08/29/18 06:32 Pulse 69 08/29/18 09:15 Resp 20 08/29/18 06:32 BP 144/57 08/29/18 09:15 Pulse Ox 96 08/29/18 06:32 Intake & Output 08/28/18 08/29/18 08/29/18 18:59 06:59 18:59 Intake Total 900 240 Balance 900 240 Intake: Oral 900 240 Other: # Voids 3 3 # Bowel Movements 1 0 Active Medications: Current Medications Acetaminophen/Hydrocodone Bitart ([place] 5mg/325mg) 1 tab PO Q4H PRN PRN Reason: Pain (Moderate) Stop: 10/22/18 10:57 Last Admin: 08/23/18 11:29 Dose: 1 tab Al Hydrox/Mg Hydrox/Simethicone (Maalox) 30 ml PO Q4HR PRN PRN Reason: GI DISTRESS Stop: 10/21/18 23:15 Amlodipine Besylate (Norvasc) 10 mg PO DAILY [facility] Stop: 10/23/18 08:59 Last Admin: 08/29/18 09:04 Dose: 10 mg Ascorbic Acid (Vitamin C) 500 mg PO DAILY [facility] Stop: 10/23/18 08:59 Last Admin: 08/29/18 09:04 Dose: 500 mg Cholecalciferol (Vitamin D3) 1,000 iu PO DAILY [facility] Stop: 10/23/18 08:59 Last Admin: 08/29/18 09:04 Dose: 1,000 iu Citalopram Hydrobromide (Celexa) 20 mg PO DAILY [facility]; Protocol Stop: 10/23/18 08:59 Last Admin: 08/29/18 09:04 Dose: 20 mg Dextrose (D50w) 50 ml IVP PRN PRN PRN Reason: BS below 70 & not tolerate po Stop: 10/22/18 11:31 Dextrose (Glutose 40%) 18.75 gm PO PRN PRN PRN Reason: BS below 70 & tolerate po Stop: 10/22/18 11:31 Docusate Sodium (Colace) 250 mg PO BID [facility] Stop: 10/22/18 16:59 Last Admin: 08/29/18 09:03 Dose: 250 mg Furosemide (Lasix) 40 mg PO DAILY [facility] Stop: 10/23/18 08:59 Last Admin: 08/29/18 09:02 Dose: 40 mg Gabapentin (Neurontin) 300 mg PO BID [facility] Stop: 10/22/18 16:59 Last Admin: 08/29/18 09:05 Dose: 300 mg Glucagon (Glucagen) 1 mg IM PRN PRN PRN Reason: BS below 70&dextrose ineffecti Stop: 10/22/18 11:31 Insulin Glargine (Lantus Insulin) 50 units SUBQ DAILY [facility] Stop: 10/27/18 08:59 Last Admin: 08/29/18 09:19 Dose: 50 units Insulin Glargine (Lantus Insulin) 25 units SUBQ HS [facility] Stop: 10/27/18 20:59 Last Admin: 08/28/18 20:32 Dose: 25 units Insulin Human Lispro (Humalog Insulin Sliding Scale) 0 units SUBQ [facility]; Protocol Stop: 10/22/18 16:29 Last Admin: 08/29/18 06:32 Dose: 4 units Lactobacillus Rhamnosus (Culturelle 15b) 1 each PO BID [facility] Stop: 10/23/18 08:59 Last Admin: 08/29/18 09:05 Dose: 1 each Lactulose (Cephulac) 20 gm PO DAILY PRN PRN Reason: Constipation Stop: 10/23/18 08:59 Lactulose (Cephulac) 20 gm PO BID [facility] Stop: 10/22/18 16:59 Last Admin: 08/29/18 09:02 Dose: 20 gm Levetiracetam (Keppra) 500 mg PO BID [facility] Stop: 10/22/18 16:59 Last Admin: 08/29/18 09:02 Dose: 500 mg Lorazepam (Ativan) 0.5 mg PO Q4HR PRN; Protocol PRN Reason: Anxiety Stop: 09/21/18 23:15 Magnesium Hydroxide (Milk Of Magnesia) 30 ml PO HS PRN PRN Reason: Constipation Metoprolol Tartrate (Lopressor) 100 mg PO BID [facility] Stop: 10/22/18 16:59 Last Admin: 08/29/18 09:15 Dose: 100 mg Mupirocin (Bactroban Oint) 1 appl NS BID [facility] Stop: 08/30/18 09:01 Last Admin: 08/29/18 09:15 Dose: 1 appl Oxcarbazepine (Trileptal) 150 mg PO BID [facility]; Protocol Stop: 10/26/18 16:59 Last Admin: 08/29/18 09:06 Dose: 150 mg Quetiapine Fumarate (Seroquel) 100 mg PO BID [facility]; Protocol Stop: 10/23/18 08:59 Last Admin: 08/29/18 09:06 Dose: 100 mg Simvastatin (Zocor) 10 mg PO HS [facility]; Protocol Stop: 10/22/18 20:59 Last Admin: 08/28/18 20:32 Dose: 10 mg Zolpidem Tartrate (Ambien) 5 mg PO HS PRN PRN Reason: Insomnia Stop: 10/21/18 23:15 General: alert HEENT: NC/AT, PERRLA, EOMI Neck: Supple, No JVD Lungs: CTAB Cardiovascular: RRR, Normal S1, Normal S2, without murmur Abdomen: soft, globular, positive bowel sound Extremities: excoriation Neurological: no change Internal Medicine Assmt/Plan - Assessment Assessment: ASSESSMENT AND PLAN: 1. History of stroke, seizure. 2. Hypertension. 3. Hypercholesterolemia. 4. Psych disorder. 5. Diabetes. 6. Anemia. 7. Hyponatremia. 8. Renal insufficiency. - Plan Plan: PLAN: Continue the patient on insulin sliding scale. on lantus, decrease to 50 u in am, 25 at night Adjust the patient's antihypertensive medication. Adjust the patient's __dm__ medication including insulin. We will monitor the patient closely. Psychiatry to manage the patient for psych issues. Nutritional Asmnt/Malnutr-PDOC - Dietary Evaluation Malnutrition Findings (Please click <Entered> for more info): Nutritional Asmnt/Malnutrition Start: 08/26/18 11: 01 Text: Status: Complete Freq: Protocol: Document 08/26/18 11:04 MORTEZA (Rec: 08/26/18 11:26 MORTEZA ARNOLD- FNS1) Nutritional Asmnt/Malnutrition Patient General Information Nutritional Screening Moderate Risk Diagnosis Incrased depression, confusion Pertinent Medical Hx/Surgical Hx HTN, stroke, DM, psych disorder Subjective Information Patient in chair at time of visit. Tolerating current diet . Current Diet Order/ Nutrition Support Mechanical soft, NCS, YVETTE Patient / S.O Not Indicated Pertinent Medications maalox, Vitamin C, Vitamin D3, D50W, colace, lasix, glucagon , lantus, humalog, culturelle, lactulose, MOM Pertinent Labs (08/22) Na 133, Cr 1.7, ALT 71, Alkaline phos 149, Albumin 4, TAG 261 (now normalized), glucose ranging 239-445 Nutritional Hx/Data Height 1.73 m Height (Calculated Centimeters) 172.7 Current Weight (lbs) 125.191 kg Weight (Calculated Kilograms) 125.2 Weight (Calculated Grams) 166421.5 [place] Body Weight 154 % [place] Body Weight 179 Body Mass Index (BMI) 41.9 Recent Weight Change No Weight Status Morbidly Obese GI Symptoms GI Symptoms None Last BM 08/23 x 1 Difficult in: None Food Allergies No Cultural/Ethnic/Anabaptist Belief none indicated Usual diet at home unknown Skin Integrity/Comment: Trey 20, intact Current %PO Good (75-100%) Estimated Nutritional Goals BEE in Kcals: Adj wt of IBW Calories/Kcals/Kg adj wt 83.8kg 25-30 kcal/kg Kcals Calculated ~4147-7775 kcal/day Protein: Adj wt of IBW Protein g/k-1.2 gm/kg Protein Calculated ~80-100 gm/day Fluid: ml ~3466-1028 ml/day (1 ml/kcal) Nutritional Problem 1. Problem Problem Altered nutrition related lab values related to Etiology hyperglycemia, electrolyte imbalance Signs/Symptoms: Na 133, glucose ranging 239- 445 Intervention/Recommendation Comments 1. Consider modifying diet to 75gm CCHO, No added salt, mechanical soft. 2. MD to adjust insulin regimen for optimal glycemic control. 3. Consider fluid restriction if patient remains hyponatremic. Expected Outcomes/Goals Expected Outcomes/Goals PO intake to meet >75% of nutritional needs, weight stability or trend toward ideal body weight, skin intact , nutrition related labs to approach WNL. F/U MR 08/29-
--- NOTE | 2018-08-29 21:07 | Progress Notes ---
DATE: 08/29/2018 SUBJECTIVE: The patient finished eating lunch in the dining room and was up walking. The patient was pleasant and shake hand with this health technical writer when approached. The patient reported that he ate well. The patient reported that he is doing okay. He denied any problem. The patient also reported that he slept well. The patient denied any auditory or visual hallucination or any episodes of getting agitated. The patient reported that another daughter visited yesterday. The patient stated that his son who is in the , stationed in [facility], called him today. OBJECTIVE: The patient continued to be calm and pleasant during the interview. The patient is alert today. The patient denied any behavioral problems or any psychotic symptoms. The staff also reported that the patient has been calm and cooperative. The patient has been taking his medication without any problem. The patient has no recurrent agitation or aggression. Staff reported no side effects seen from Trileptal. ASSESSMENT: Vascular dementia with depression and behavioral disturbance with possibly psychotic symptoms: Mood disorder, depressed due to medical condition, impulse control disorder, not otherwise specified: Personality change due to medical condition. PLAN: We will continue the patient on current medications. We will monitor for any side effects from the medications. If the patient continued to be doing well, we will consider discharging the patient tomorrow. JOB# [id number] SUZAN
[2018-08-30] MEDS: INSULIN LISPRO SLIDING SCALE 100 UNITS/ML UNIT SUBQ SCH ×2 (06:49→11:48)
[2018-08-30] MEDS: Lactulose 10 Gm/15 mL 30mL UDC PO SCH (08:18)
[2018-08-30] MEDS: Lactobacillus Rhamnosus GG 15 Billion CFU CAP.SPRINK PO SCH (08:19)
[2018-08-30] MEDS: Multivitamin w/ Minerals Tab PO SCH (08:19)
[2018-08-30] MEDS: Insulin Glargine 100 units/ml 10ml Vial SUBQ SCH (08:28)
--- NOTE | 2018-08-30 10:16 | Discharge Summary ---
DATE OF DISCHARGE: 08/30/2018 REASON FOR ADMISSION: The patient was admitted for increased agitation at [facility]. HISTORY OF PRESENT ILLNESS: The patient was a 62 years old -[place] male who is a resident of [facility]. On the day of admission, the facility decided to send the patient because the patient has been difficult to handle. The patient had episodes of confusion with agitation. Upon interview, the patient appeared to be confused. The patient was able to give his name and date of , but stated that he is 63 instead of 62, which is his actual age. The patient was not able to say how long he has been here and why he is here. Immediate memory appeared to be okay. The patient was able to repeat the 4 items after that were given to him the first time. However, the patient was unable to recall any of the 4 items. When given hints, the patient was able to recall the 4 items. Concentration appeared to be adequate; however, the patient had difficulty performing serial 3 subtraction and serial 7 subtraction. The patient was able to give the first answer of serial 3, 20 minus 3 equals 17, but not able to give the next answer. The patient did the same for serial 7 subtraction, was able to say 100 minus 7 equals 93 and not able to give the next answer. The patient was not able to give interpretation to 2/3 proverbs and gave concrete interpretation to the third one. MEDICAL HISTORY: The patient has a history of cerebrovascular accident with right-sided weakness, seizure disorder, hypertension, neuralgia, neuritis and hyperlipidemia. LABORATORY DATA: Upon admission, the patient has CBC done, which show RBC 4.24, hemoglobin 11.9, hematocrit of 36.9, these are slightly low. CMP showed sodium of 133, slightly low; creatinine 1.7, slightly elevated; glucose on admission was 329, elevated; ALT 71; alkaline phosphatase 149; and triglycerides 161, this is elevated. Troponin of less than 0.01, which was low; albumin 4.0, which was low. Urinalysis showed glucose of greater than 1000, rbc's 0-2 and slightly elevated, the rest were normal. Toxicology: Salicylate less than 25, which was low; acetaminophen less than 10, which was low. Tricyclic screen was positive. RPR nonreactive. MEDICATIONS: The patient continued his psychotropic medication, which he was taking at the facility, which includes Celexa 20 mg daily, Ativan 0.5 mg q.4 hours p.r.n., Seroquel 100 mg b.i.d., Ambien 5 mg p.o. at bedtime p.r.n. HOSPITAL COURSE: In the first few days of his admission, the patient had some episodes of agitation. At one point, the patient became angry with the staff, accusing the staff of not filling out his menu properly. Since the patient had recurrence of some episodes of agitation; therefore, Trileptal 150 mg b.i.d. was started and this appeared to be working. The patient appeared to be calmer and pleasant when approached. The staff reported no observable side effects from the medication. On the day of discharge, the patient stated that his son called this morning from out of state. This patient reported that his son is in the and stationed in [facility]. However, when checked with the staff, the staff reported that nobody called the patient this morning. The patient also made the same statement that his son called him out of state yesterday. When asked the patient if his son called yesterday, the patient stated no, but continued to say that his son did call this morning. Since the patient is doing well; therefore, the patient is discharged on 08/30/2018 back to [facility]. MEDICATIONS UPON DISCHARGE: Will continue patient on [place], Maalox, Norvasc, vitamin C, vitamin D3, Celexa 20 mg daily, docusate sodium, Lasix, Neurontin, glucagon, Lantus insulin, Humalog and insulin sliding scale, lactobacillus, lactulose, Keppra, Ativan 0.5 mg q.4 hours p.r.n., milk of magnesia, Lopressor, Trileptal 150 mg b.i.d., Seroquel 100 mg b.i.d., Zocor, Ambien 5 mg p.o. at bedtime p.r.n. FINAL DIAGNOSES: AXIS I: 1. Vascular dementia with depression and behavioral disturbance. 2. 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 3. Impulse control disorder, not otherwise specified. 4. Personality change due to medical condition. AXIS II: Deferred. AXIS III: Cerebrovascular accident with right-sided weakness, seizure disorder, hypertension, neuralgia, neuritis, hyperlipidemia, diabetes mellitus. AXIS IV: Medical and mental illness. AXIS V: Current 30, past year unknown. [facility]# [id number]
--- NOTE | 2018-08-30 12:15 | Internal Medicine Prog Note ---
Internal Medicine Subjective - Subjective Patient seen and examined:: with staff, chart reviewed Patient is:: awake, verbal, interactive, in wheelchair Per staff patient has:: no adverse event, no episodes of fall, eating well, tolerating meds Internal Medicine Objective - Results Result Diagrams: 08/22/18 18:00 08/22/18 18:00 Recent Labs: Laboratory Last Values WBC 5.3 Th/cmm (4.8-10.8) 08/22/18 18:00 RBC 4.24 Mil/cmm (4.30-5.70) L 08/22/18 18:00 Hgb 11.9 gm/dL (12-16) L 08/22/18 18:00 Hct 36.9 % (41.0-60) L 08/22/18 18:00 MCV 87.0 fl (80-99) 08/22/18 18:00 MCH 28.1 pg (26.0-30.0) 08/22/18 18:00 MCHC Differential 32.2 pg (28.0-36.0) 08/22/18 18:00 RDW 13.5 % (11.5-20.0) 08/22/18 18:00 Plt Count 159 Th/cmm (150-400) 08/22/18 18:00 MPV 8.6 fl 08/22/18 18:00 Neutrophils % 51.3 % (40.0-80.0) 08/22/18 18:00 Lymphocytes % 36.7 % (20.0-50.0) 08/22/18 18:00 Monocytes % 9.3 % (2.0-10.0) 08/22/18 18:00 Eosinophils % 2.1 % (0.0-5.0) 08/22/18 18:00 Basophils % 0.6 % (0.0-2.0) 08/22/18 18:00 Sodium 133 mEq/L (136-145) L 08/22/18 18:00 Potassium 3.9 mEq/L (3.5-5.1) 08/22/18 18:00 Chloride 98 mEq/L (98-107) 08/22/18 18:00 Carbon Dioxide 26.1 mEq/L (21.0-31.0) 08/22/18 18:00 Anion Gap 12.8 (7.0-16.0) 08/22/18 18:00 BUN 24 mg/dL (7-25) 08/22/18 18:00 Creatinine 1.7 mg/dL (0.7-1.3) H 08/22/18 18:00 Est GFR ( Amer) 52.6 ml/min (>90) 08/22/18 18:00 Est GFR (Non-Af Amer) 43.5 ml/min 08/22/18 18:00 BUN/Creatinine Ratio 14.1 08/22/18 18:00 Glucose 445 mg/dL (70-105) H 08/24/18 16:57 POC Glucose 129 MG/DL (70 - 105) H 08/26/18 06:42 Calcium 9.7 mg/dL (8.6-10.3) 08/22/18 18:00 Total Bilirubin 0.4 mg/dL (0.3-1.0) 08/22/18 18:00 AST 31 U/L (13-39) 08/22/18 18:00 ALT 71 U/L (7-52) H 08/22/18 18:00 Alkaline Phosphatase 149 U/L (34-104) H 08/22/18 18:00 Troponin I < 0.01 ng/mL (0.01-0.05) L 08/22/18 18:00 Total Protein 7.4 gm/dL (6.0-8.3) 08/22/18 18:00 Albumin 4.0 gm/dL (4.2-5.5) L 08/22/18 18:00 Globulin 3.4 gm/dL 08/22/18 18:00 Albumin/Globulin Ratio 1.2 (1.0-1.8) 08/22/18 18:00 Triglycerides 121 mg/dL (<150) 08/23/18 06:00 Cholesterol 151 mg/dL (<200) 08/23/18 06:00 LDL Cholesterol Direct 109 mg/dL (75-193) 08/23/18 06:00 HDL Cholesterol 24 mg/dL (23-92) 08/23/18 06:00 TSH 5.39 uIU/ml (0.34-5.60) 08/22/18 18:00 Urine Source CLEAN C 08/22/18 18:25 Urine Color YELLOW 08/22/18 18:25 Urine Clarity CLEAR (CLEAR) 08/22/18 18:25 Urine pH 6.0 (4.6 - 8.0) 08/22/18 18:25 Ur Specific [place] 1.010 (1.005-1.030) 08/22/18 18:25 Urine Protein NEGATIVE mg/dL (NEGATIVE) 08/22/18 18:25 Urine Glucose (UA) >=1000 mg/dL (NEGATIVE) H 08/22/18 18:25 Urine Ketones NEGATIVE mg/dL (NEGATIVE) 08/22/18 18:25 Urine Blood NEGATIVE (NEGATIVE) 08/22/18 18:25 Urine Nitrate NEGATIVE (NEGATIVE) 08/22/18 18:25 Urine Bilirubin NEGATIVE (NEGATIVE) 08/22/18 18:25 Urine Urobilinogen 0.2 E.U./dL (0.2 - 1.0) 08/22/18 18:25 Ur Leukocyte Esterase NEGATIVE (NEGATIVE) 08/22/18 18:25 Urine RBC 0-2 /hpf (0-5) H 08/22/18 18:25 Urine WBC 2-5 /hpf (0-5) 08/22/18 18:25 Ur Epithelial Cells OCCASIONAL /lpf (FEW) 08/22/18 18:25 Urine Bacteria FEW /hpf (NONE SEEN) 08/22/18 18:25 Salicylates < 25.0 mg/L (30.0-100.0) L 08/22/18 18:00 Urine Opiates Screen NEGATIVE (NEGATIVE) 08/22/18 17:30 Urine Methadone Screen NEGATIVE (NEGATIVE) 08/22/18 17:30 Acetaminophen < 10.0 ug/mL (10.0-30.0) L 08/22/18 18:00 Ur Barbiturates Screen NEGATIVE (NEGATIVE) 08/22/18 17:30 Ur Tricyclics Screen POSITIVE (NEGATIVE) H 08/22/18 17:30 Ur Phencyclidine Scrn NEGATIVE (NEGATIVE) 08/22/18 17:30 Amphetamines Screen NEGATIVE (NEGATIVE) 08/22/18 17:30 U Methamphetamines Scrn NEGATIVE (NEGATIVE) 08/22/18 17:30 U Benzodiazepines Scrn NEGATIVE (NEGATIVE) 08/22/18 17:30 U Cocaine Metab Screen NEGATIVE (NEGATIVE) 08/22/18 17:30 U Cannabinoids Screen NEGATIVE (NEGATIVE) 08/22/18 17:30 Ethyl Alcohol < 10 mg/dL (0-10) 08/22/18 18:00 RPR NONREACTIVE (NONREACTIVE) 08/22/18 18:00 - Physical Exam Vitals and I&O: Vital Signs Temp 98.4 F 08/30/18 10:58 Pulse 62 08/30/18 10:58 Resp 18 08/30/18 10:58 BP 134/80 08/30/18 10:58 Pulse Ox 98 08/30/18 10:58 Intake & Output 08/29/18 08/30/18 08/30/18 18:59 06:59 18:59 Intake Total 1200 240 Balance 1200 240 Intake: Oral 1200 240 Other: # Voids 4 2 # Bowel Movements 1 0 Active Medications: Current Medications Acetaminophen/Hydrocodone Bitart ([place] 5mg/325mg) 1 tab PO Q4H PRN PRN Reason: Pain (Moderate) Stop: 10/22/18 10:57 Last Admin: 08/23/18 11:29 Dose: 1 tab Al Hydrox/Mg Hydrox/Simethicone (Maalox) 30 ml PO Q4HR PRN PRN Reason: GI DISTRESS Stop: 10/21/18 23:15 Amlodipine Besylate (Norvasc) 10 mg PO DAILY [facility] Stop: 10/23/18 08:59 Last Admin: 08/30/18 08:19 Dose: 10 mg Ascorbic Acid (Vitamin C) 500 mg PO DAILY [facility] Stop: 10/23/18 08:59 Last Admin: 08/30/18 08:19 Dose: 500 mg Cholecalciferol (Vitamin D3) 1,000 iu PO DAILY [facility] Stop: 10/23/18 08:59 Last Admin: 08/30/18 08:18 Dose: 1,000 iu Citalopram Hydrobromide (Celexa) 20 mg PO DAILY [facility]; Protocol Stop: 10/23/18 08:59 Last Admin: 08/30/18 08:19 Dose: 20 mg Dextrose (D50w) 50 ml IVP PRN PRN PRN Reason: BS below 70 & not tolerate po Stop: 10/22/18 11:31 Dextrose (Glutose 40%) 18.75 gm PO PRN PRN PRN Reason: BS below 70 & tolerate po Stop: 10/22/18 11:31 Docusate Sodium (Colace) 250 mg PO BID [facility] Stop: 10/22/18 16:59 Last Admin: 08/30/18 08:18 Dose: 250 mg Furosemide (Lasix) 40 mg PO DAILY [facility] Stop: 10/23/18 08:59 Last Admin: 08/30/18 08:17 Dose: 40 mg Gabapentin (Neurontin) 300 mg PO BID [facility] Stop: 10/22/18 16:59 Last Admin: 08/30/18 08:17 Dose: 300 mg Glucagon (Glucagen) 1 mg IM PRN PRN PRN Reason: BS below 70&dextrose ineffecti Stop: 10/22/18 11:31 Insulin Glargine (Lantus Insulin) 50 units SUBQ DAILY [facility] Stop: 10/27/18 08:59 Last Admin: 08/30/18 08:28 Dose: 50 units Insulin Glargine (Lantus Insulin) 25 units SUBQ HS [facility] Stop: 10/27/18 20:59 Last Admin: 08/29/18 20:47 Dose: 25 units Insulin Human Lispro (Humalog Insulin Sliding Scale) 0 units SUBQ [facility]; Protocol Stop: 10/22/18 16:29 Last Admin: 08/30/18 11:48 Dose: 8 units Lactobacillus Rhamnosus (Culturelle 15b) 1 each PO BID [facility] Stop: 10/23/18 08:59 Last Admin: 08/30/18 08:19 Dose: 1 each Lactulose (Cephulac) 20 gm PO DAILY PRN PRN Reason: Constipation Stop: 10/23/18 08:59 Lactulose (Cephulac) 20 gm PO BID [facility] Stop: 10/22/18 16:59 Last Admin: 08/30/18 08:18 Dose: 20 gm Levetiracetam (Keppra) 500 mg PO BID [facility] Stop: 10/22/18 16:59 Last Admin: 08/30/18 08:18 Dose: 500 mg Lorazepam (Ativan) 0.5 mg PO Q4HR PRN; Protocol PRN Reason: Anxiety Stop: 09/21/18 23:15 Magnesium Hydroxide (Milk Of Magnesia) 30 ml PO HS PRN PRN Reason: Constipation Metoprolol Tartrate (Lopressor) 100 mg PO BID [facility] Stop: 10/22/18 16:59 Last Admin: 08/30/18 08:18 Dose: 100 mg Oxcarbazepine (Trileptal) 150 mg PO BID [facility]; Protocol Stop: 10/26/18 16:59 Last Admin: 08/30/18 08:20 Dose: 150 mg Quetiapine Fumarate (Seroquel) 100 mg PO BID [facility]; Protocol Stop: 10/23/18 08:59 Last Admin: 08/30/18 08:18 Dose: 100 mg Simvastatin (Zocor) 10 mg PO HS [facility]; Protocol Stop: 10/22/18 20:59 Last Admin: 08/29/18 20:44 Dose: 10 mg Zolpidem Tartrate (Ambien) 5 mg PO HS PRN PRN Reason: Insomnia Stop: 10/21/18 23:15 Last Admin: 08/29/18 20:50 Dose: 5 mg General: alert HEENT: NC/AT, PERRLA, EOMI Neck: Supple, No JVD Lungs: CTAB Cardiovascular: RRR, Normal S1, Normal S2, without murmur Abdomen: soft, globular, positive bowel sound Extremities: excoriation Neurological: no change Internal Medicine Assmt/Plan - Assessment Assessment: ASSESSMENT AND PLAN: 1. History of stroke, seizure. 2. Hypertension. 3. Hypercholesterolemia. 4. Psych disorder. 5. Diabetes. 6. Anemia. 7. Hyponatremia. 8. Renal insufficiency. - Plan Plan: PLAN: Continue the patient on insulin sliding scale. on lantus, decrease to 50 u in am, 25 at night Adjust the patient's antihypertensive medication. Adjust the patient's __dm__ medication including insulin. We will monitor the patient closely. Psychiatry to manage the patient for psych issues. Nutritional Asmnt/Malnutr-PDOC - Dietary Evaluation Malnutrition Findings (Please click <Entered> for more info): Nutritional Asmnt/Malnutrition Start: 08/26/18 11: 01 Text: Status: Complete Freq: Protocol: Document 08/26/18 11:04 MORTEZA (Rec: 08/26/18 11:26 MORTEZA ARNOLD- [email or web address]) Nutritional Asmnt/Malnutrition Patient General Information Nutritional Screening Moderate Risk Diagnosis Incrased depression, confusion Pertinent Medical Hx/Surgical Hx HTN, stroke, DM, psych disorder Subjective Information Patient in chair at time of visit. Tolerating current diet . Current Diet Order/ Nutrition Support Mechanical soft, NCS, YVETTE Patient / S.O Not Indicated Pertinent Medications manomanx, Vitamin C, Vitamin D3, D50W, colace, lasix, glucagon , lantus, humalog, culturelle, lactulose, MOM Pertinent Labs (08/22) Na 133, Cr 1.7, ALT 71, Alkaline phos 149, Albumin 4, TAG 261 (now normalized), glucose ranging 239-445 Nutritional Hx/Data Height 1.73 m Height (Calculated Centimeters) 172.7 Current Weight (lbs) 125.191 kg Weight (Calculated Kilograms) 125.2 Weight (Calculated Grams) 580710.5 [place] Body Weight 154 % [place] Body Weight 179 Body Mass Index (BMI) 41.9 Recent Weight Change No Weight Status Morbidly Obese GI Symptoms GI Symptoms None Last BM 08/23 x 1 Difficult in: None Food Allergies No Cultural/Ethnic/Jainism Belief none indicated Usual diet at home unknown Skin Integrity/Comment: Trey 20, intact Current %PO Good (75-100%) Estimated Nutritional Goals BEE in Kcals: Adj wt of IBW Calories/Kcals/Kg adj wt 83.8kg 25-30 kcal/kg Kcals Calculated ~4417-9028 kcal/day Protein: Adj wt of IBW Protein g/k-1.2 gm/kg Protein Calculated ~80-100 gm/day Fluid: ml ~6796-8698 ml/day (1 ml/kcal) Nutritional Problem 1. Problem Problem Altered nutrition related lab values related to Etiology hyperglycemia, electrolyte imbalance Signs/Symptoms: Na 133, glucose ranging 239- 445 Intervention/Recommendation Comments 1. Consider modifying diet to 75gm CCHO, No added salt, mechanical soft. 2. MD to adjust insulin regimen for optimal glycemic control. 3. Consider fluid restriction if patient remains hyponatremic. Expected Outcomes/Goals Expected Outcomes/Goals PO intake to meet >75% of nutritional needs, weight stability or trend toward ideal body weight, skin intact , nutrition related labs to approach WNL. F/U MR 08/29-
== END 2018-08-30 16:14 | DRG 886 ==
LOC: ER 17:23 → GERO 21:36
PROVIDERS: ADMIT Psychiatry & Neurology Psychiatry; ATTEND Psychiatry & Neurology Psychiatry
DX: F63.9 Impulse disorder, unspecified (principal); F01.51 Vascular dementia, unspecified severity, with behavioral disturbance; E87.1 Hypo-osmolality and hyponatremia; I69.351 Hemiplegia and hemiparesis following cerebral infarction affecting right dominant side; F32.9 Major depressive disorder, single episode, unspecified; I10 Essential (primary) hypertension; E11.9 Type 2 diabetes mellitus without complications; E78.5 Hyperlipidemia, unspecified; E78.00 Pure hypercholesterolemia, unspecified; F29 Unspecified psychosis not due to a substance or known physiological condition; D64.9 Anemia, unspecified; N28.9 Disorder of kidney and ureter, unspecified; G40.909 Epilepsy, unspecified, not intractable, without status epilepticus; M79.2 Neuralgia and neuritis, unspecified; Z82.49 Family history of ischemic heart disease and other diseases of the circulatory system
CPT/HCPCS: 36415-UA; 80053-TC; 80061-TC; 80307; 80320-TC; 80329-TC; 81001-TC; 82947-TC; 82948-90; 83036-90; 84443-TC; 84484-TC; 85025-TC; 86592-TC; 93005; G0410; J1815; Z7610